=== PATIENT | female | born 2005 | race Caucasian/White ===

== ENCOUNTER 2023-10-25 15:23 | Emergency (ER) | payer BC, MEDICAID, SELFPAY ==
[2023-10-25 15:34] VITALS: BP 145/90; PULSE 112; RESP 18; TEMP 37.7; O2SAT 99
--- NOTE | 2023-10-25 15:34 | ED.URI ---
HPI - URI/Sore Throat General Chief Complaint: Upper Respiratory Infection Stated Complaint: Sore Throat Time Seen by Provider: 10/25/23 15:39 History of Present Illness HPI Narrative: 17-year-old female presented for complaint of sore throat. Onset last night. She endorses feeling 'bad' last night. Denies cough, nasal congestion, n/v/d/f/c. Not taking anything for symptoms. Related Data Home Medications Medication Instructions Recorded Confirmed No Home Medications 10/25/23 10/25/23 Allergies Allergy/AdvReac Type Severity Reaction Status Date / Time No Known Allergies Allergy Unverified 10/25/23 15:28 Review of Systems Review of Systems: CONSTITUTIONAL: Denies body aches, fever, chills, or sweats. EYES: Denies visual changes, redness, or discharge. ENT: reports sore throat Denies rhinorrhea, congestion, or otalgia. CARDIOVASCULAR: Denies chest pain, palpitations, or edema. RESPIRATORY: Denies dyspnea. GASTROINTESTINAL: Denies abdominal pain, nausea, vomiting, or diarrhea. SKIN: Denies rash, itching, or wounds. MUSCULOSKELETAL: Denies back pain, joint pain, or myalgia. NEUROLOGIC: Denies headache Exam Narrative: GENERAL: well-appearing, no acute distress. EYES: conjunctivae clear ENT: Mucous membranes moist. TM pearly turcios with normal light reflex bilaterally; no tragal tenderness. Oropharynx erythematous Tonsils not enlarged and without exudate. No drooling, no hoarseness, no trismus, uvula midline. No tripod positioning, hot potato voice, or soft palate swelling. NECK: Supple. No lymphadenopathy CHEST: Clear to auscultation, breath sounds equal. No respiratory distress, speaks in full sentences. HEART: Regular rate and rhythm. No murmur heard. SKIN: Warm, dry, no rash. NEURO: Alert and oriented x3. Course Course Emergency Course: Patient is aware of diagnosis, understands and agrees to treatment plan. Anticipatory guidance given. Patient agrees to follow-up as directed and is aware of reasons to seek care at the emergency department. Portions of this record may have been created with voice recognition software Level of Care: Express Care Visit MDM - URI/Sore Throat MDM Narrative Medical decision making narrative: Neg strep result reviewed with pt. will culture. Advise supportive treatments. Patient is appropriate for outpatient treatment and follow-up. Differential Diagnosis Differential diagnosis: Likely upper respiratory infection, viral infection and pharyngitis Discharge Plan Discharge Clinical Impression: Pharyngitis Patient Disposition: Home, Self-Care Condition: Stable Instructions: Antibiotic Form, Pharyngitis (ED) Additional Instructions: Rapid strep swab was negative today You will be notified in a few days if the culture comes back positive for strep, and appropriate antibiotics will be called in at that time. if symptoms are due to a viral illness, it is not treated with antibiotics. Viral symptoms can be present for up to 10-14 days. Motrin and Tylenol every 8 hours as needed for pain/fever Soft foods, cool liquids, warm tea. Gargle with warm saltwater twice a day. Chloraseptic spray and throat lozenges. Rest and stay hydrated. --Follow up with your PCP --Go to the ER immediately if you cannot swallow your saliva, trouble breathing/wheezing, throat swelling, pain is persistent and severe Prescriptions: No Action No Home Medications Follow-up/Referrals: PHYSICIAN,CORRECTIONAL CLASSIFICATION COUNSELOR [Primary Care Provider] - Time of Disposition: 15:43
== END 2023-10-25 15:48 | disposition home or self-care (01) ==
PROVIDERS: Emergency Provider Nurse Practitioner Family
DX: J02.9 Acute pharyngitis, unspecified (principal)
CPT/HCPCS: 87081; 87880; 99213; G0463

== ENCOUNTER 2024-05-16 16:33 | Emergency (ER) | payer BC, SELFPAY ==
[2024-05-16 16:38] VITALS: BP 146/95; PULSE 88; RESP 16; TEMP 36.7; O2SAT 100
--- NOTE | 2024-05-16 16:53 | ED_ITS ---
HPI - URI/Sore Throat General Chief Complaint: Upper Respiratory Infection Stated Complaint: Poss sinus infection History of Present Illness HPI Narrative: Patient presents with nasal congestion and cold symptoms for the past 5 days. No fever no body aches has not taking anything [id number] for her symptoms. Related Data Allergies Allergy/AdvReac Type Severity Reaction Status Date / Time No Known Allergies Allergy Unverified 10/25/23 15:28 Review of Systems Review of Systems: CONSTITUTIONAL: Denies chills, or sweats. Reports fever and generalized body aches EYES: Denies visual changes, redness, or discharge. ENT: Denies otalgia. Reports nasal congestion runny nose and sore throat CARDIOVASCULAR: Denies chest pain, palpitations, or edema. RESPIRATORY: Denies dyspnea. Reports occasional cough GASTROINTESTINAL: Denies abdominal pain, nausea, vomiting, or diarrhea. GENITOURINARY: Denies dysuria or hematuria. SKIN: Denies rash or itching. MUSCULOSKELETAL: Denies back pain, joint pain, or myalgia. Reports generalized body aches NEUROLOGIC: Denies headache, numbness, or weakness. PSYCHIATRIC: Denies anxiety or depression. PMF Comments At time of signature, agree with nursing past medical, surgical, social and family history. There is no relevant family history pertinent to the presenting complaint Exam Narrative: The patient is a well-developed, well-nourished in no acute distress. SKIN: Skin is warm and dry without erythema, swelling or exudate. There is good turgor. No tenting. HEAD: Atraumatic. Normocephalic. No temporal or scalp tenderness. EYES: Moist and bright. Sclera and conjunctivae normal. No discharge. PERRLA. Extraocular motions intact. Gross visual acuity intact. EARS: Pinna is normal shape and contour. Clear external auditory canals. TM pearly miller with good cone of light, no erythema or suppuration. Bilateral cerumen noted no gross hearing deficit. NOSE: pink, moist mucosa with good air movement. Clear rhinorrhea without nasal flaring. Septum midline. Mouth: moist mucous membranes. THROAT; mild erythema noted to posterior oropharynx with moderate postnasal drainage. Without exudate or ulceration.. Uvula midline. Normal movement of soft palate. NECK: Supple and nontender with full range of motion without discomfort. No meningeal signs. LUNGS: Equal and bilateral breath sounds without wheezes, rales or rhonchi. CHEST: The chest wall is without retractions or use of accessory muscles. HEART: Has a regular rate and rhythm without murmur, gallops, click or rub. ABDOMEN: Soft, nontender with positive active bowel sounds. No rebound tenderness. EXTREMITIES: Without cyanosis, clubbing or edema. Equal 2+ distal pulses and 2 second capillary refill noted. NEUROLOGIC: alert, active, . The patient moves all extremities with normal muscle strength. Normal muscle tone is noted. Normal coordination is noted. NO focal neurological findings noted. Course Course Level of Care: Express Care Visit Vital Signs Vital signs: Vital Signs Temperature 36.7 C 05/16/24 16:38 Pulse Rate 88 05/16/24 16:38 Respiratory Rate 16 05/16/24 16:38 Blood Pressure 146/95 H 05/16/24 16:38 Pulse Oximetry 100 05/16/24 16:38 Oxygen Delivery Room Air 05/16/24 16:38 Temperature 36.7 C 05/16/24 16:38 Pulse Rate 88 05/16/24 16:38 Respiratory Rate 16 05/16/24 16:38 Blood Pressure 146/95 H 05/16/24 16:38 Pulse Oximetry 100 05/16/24 16:38 Oxygen Delivery Room Air 05/16/24 16:38 Discharge Plan Discharge Clinical Impression: Upper respiratory infection Patient Disposition: Home, Self-Care Condition: Stable Instructions: Cold Symptoms (ED) Additional Instructions: INUSITIS, Abx Tx, Drink plenty of water (with the goal to keep your urine clear to light yellow) and get plenty of rest (8-9 hours a night).You may try saline rinses ([place]/Simply Saline/Neti Pot), Lit's Vaporub, or a humidifier/hot showers for your nose symptoms. You may also try taking an anti-histamine during the day (such as Dorothea/Claritin/Zyrtec) and Benadryl at night as dosed on the package regularly for the next 1-2 weeks to help dry passageways to decrease drainage and symptoms. You may try Delsym or Mucinex DM as dosed on the package, or cough drops for your cough. You may try Chloraseptic spray as dosed on the bottle, honey 2-3 tablespoons 2-3 times a day, cough drops/peppermints for your sore throat over the next week. , Discussed with patient if worsening symptoms or worsening pain follow up with primary care physician -If you have any worsening of symptoms or any other concerns please go to the ED immediately. Patient Language: Chadian Prescriptions: New methylprednisolone [Medrol (Sohail)] 4 mg tablets,dose pack See Rx Instructions .ROUTE .COMPLEX 6 Days Qty: 21 0RF Rx Instructions: orally per package directions fluticasone propionate 50 mcg/actuation spray,suspension 2 spray NASAL DAILY 14 Days Qty: 9.9 0RF Rx Instructions: administer into each nostril Zyrtec 10 mg capsule 10 mg PO DAILY 14 Days Qty: 14 0RF Follow-up/Referrals: PHYSICIAN,ATMOSPHERIC PHYSICIST [Primary Care Provider] -
--- OUTSIDE RECORDS SUMMARY | 2024-05-20 23:51 | XMS_ITS | Clinical Summary ---
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 Last Documented On 2 11:02AM ; [facility]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 Plan of Treatment No Plan of Treatment Recorded Assessments Includes: Assessments from this encounter Findings - Vaginitis - Last Documented On 05/20/2022 9:54AM ; [facility] Medical Equipment - Implanted Devices Includes: Current Devices No Medical Equipment Recorded Medications Includes: Medications discussed during this encounter and other current Medications New / Renewed during this visit SONJA VEGA on 05/20/2022 metroNIDAZOLE 0.75% Vaginal Gel Provider: SONJA VEGA 5 day supply: 70 gram, 0 refills Diagnosis: Acute vaginitis as directed 1 LIDA PER VAGINA DAILY X 5 Pharmacy : [facility] - [address] [place] [address], [id number] - Last Documented On 2 10:07AM [facility] ; [facility] Past Medications on file Condoms Miscellaneous 06/20/2022 - 07/02/2022 Provider: SONJA LOTT RN [facility] Diagnosis: Encounter for ot h general cnsl and advice on contraception as directed Last Documented On 3 4:25PM By [facility] Ventolin HFA 108 (90 Base)MCG/ACT Inhalation Aerosol, solution 09/22/2018 - 10/22/2018 Provider: JAYME LOZOYA PA-C Diagnosis: Shortness of manuel ath 2 puffs q 4-6 hrs PRN Last Documented On 9 4:04PM By JAYME LOZOYA PA-C ; [facility] Penicillin V Potassium 250 MG/5ML Solution, when reconstituted 08/18/2014 - 08/28/2014 Provider: ZAFAR QUEZADA [facility] Diagnosis: ACUTE PHARYNGITI S as directed 5ml BID x 10 days Last Documented On 5 3:26PM By ZAFAR QUEZADA [facility] ; [facility] Amoxicillin 250 MG OR CAPS 09/04/2013 - 09/14/2013 Provider: JAYME LOZOYA PA-C Diagnosis: STREP SORE THROA T Take 3 capsules once daily x 10 days Last Documented On 4 2:19PM By JAYME LOZOYA PA-C ; [facility] Amoxicillin 250 MG OR CAPS 02/09/2013 - 02/19/2013 Provider: KATYA DOOLEY MD Diagnosis: ACUTE PHARYNGITI S 3 ONCE A DAY X 10 DAYS Last Documented On 02/09/2013 3:52PM By Elicia CORTEZ ; [facility] Ciprodex 0.3-0.1% OT SUSP 01/03/2012 - 01/10/2012 Provider: JAYME LOZOYA PA-C Diagnosis: INFEC OTITIS EXT USMAN NOS 4 gtts in affected ear twice daily x 7 days Last Documented On 2 1:32PM By JAYME LOZOYA PA-C ; [facility] Singulair 5 MG OR CHEW 10/17/2011 - 11/16/2011 Provide r: JAYME LOZOYA PA-C Diagnosis: UPPER RESP DIS NEC/NOS Chew one tab daily in PM. Last Documented On 2 2:58PM By JAYME LOZYOA PA-C ; [facility] Silver sulfADIAZINE 1% EX CREA 09/24/2011 - 10/02/2011 Provider: KATYA DOOLEY MD Diagnosis: OPEN WOUND SITE NOS Last Documented On 2 11:42PM By KATYA DOOLEY MD ; [facility] Medications Administered Includes: Administered Medications from this encounter No Administered Medications Recorded Results Includes: Results discussed during this encounter No Results Recorded For Specified Dates History of Present Illness Includes: History of Present Illness from this encounter No History of Present Illness Recorded Social History No Social History Recorded - Smoking Status Unknown Procedures and Surgical History Surgical History Last Updated Surgical / procedural history RT LABIAL HERNIA [id number] 09/24/2011 Last Documented On 2 9:53AM ; [facility] Medical History Includes: Medical History addressed during this encounter Description Last Updated LMP: 05/08/2022 06/20/2022 Last Documented On 2 9:53AM ; [facility] Primary Care Provider: NONE 05/17/2022 Last Documented On 2 9:53AM ; [facility] 0 05/17/2022 Last Documented On 2 9:53AM ; [facility] Condoms 05/17/2022 Last Documented On 2 9:53AM ; [facility] No previous STD 05/17/2022 Last Documented On 2 9:53AM ; [facility] Please list all surgeries: Labial Hernia 2004 05/17/2022 Last Documented On 2 9:53AM ; [facility] Not taking medication 09/24/2017 Last Documented On 2 9:53AM ; [facility] A PPD was not performed 10/15/2014 Last Documented On 2 9:53AM ; [facility] Blood pressure was not high 10/15/2014 Last Documented On 2 9:53AM ; [facility] No cardiac problems 10/15/2014 Last Documented On 2 9:53AM ; [facility] No hearing problems 10/15/2014 Last Documented On 2 9:53AM ; [facility] No heart murmur 10/15/2014 Last Documented On 2 9:53AM ; [facility] No previous hospitalizations 10/15/2014 Last Documented On 2 9:53AM ; [facility] No trauma to the head 10/15/2014 Last Documented On 2 9:53AM ; [facility] Family History Includes: Family History addressed during this encounter Description Last Updated Mother-hyperhomocysteinemia 05/17/2022 Last Documented On 2 9:53AM ; [facility] No diagnosis of family history of malign ant female breast neoplasm 05/17/2022 Last Documented On 2 9:53AM ; [facility] No diagnosis of family history of malign ant neoplasm of large intestine 05/17/2022 Last Documented On 2 9:53AM ; [facility] No diagnosis of family history of malign ant neoplasm of ovary 05/17/2022 Last Documented On 2 9:53AM ; [facility] Family history of Anemia 05/17/2022 Last Documented On 2 9:53AM ; [facility] Maternal history of Anemia 05/17/2022 Last Documented On 2 9:53AM ; [facility] Maternal history of gallbladder disease 05/17/2022 Last Documented On 2 9:53AM ; [facility] Paternal history of gallbladder disease 05/17/2022 Last Documented On 2 9:53AM ; [facility] Family history of acute myocardial infar ction MAT GF IN 40s (Smoker) 09/22/2018 Last Documented On 2 9:53AM ; [facility] Family history of anxiety disorder NOS M OTHER AND FATHER 09/22/2018 Last Documented On 2 9:53AM ; [facility] Family history of hypertension FATHER Last Documented On 2 9:53AM ; [facility] No family history of diabetes mellitus 0 10/15/2014 Last Documented On 2 9:53AM ; [facility] No family history of sudden early deaths 10/15/2014 Last Documented On 2 9:53AM ; [facility] Family history unchanged 08/18/2014 Last Documented On 2 9:53AM ; [facility] Review of Systems Includes: Review of Systems from this encounter No Review of Systems Recorded Mental Status Includes: Mental Status from this encounter No Mental Status Recorded Functional Status Includes: Functional Status from this encounter No Functional Status Recorded Physical Exam Includes: Physical Exam from this encounter No Physical Exam Recorded Allergies Includes: Active Allergies No Known Allergies Encounters Encounter Provider Location Date Check-In Time Check-Out Time Diagnosis CHART UPDATE SONJA LOTT RN [facility] 05/20/2022 9:52AM 11:59PM Vaginitis Insurance Includes: Active Insurance Policies Plan Name Member ID Group # Subscriber Relationship Effect angei Dates 1 - MEDICAID [place] [facility] [id number] TERE MEJIA Self Clinical Notes Includes: Clinical Notes from this encounter No Clinical Notes Recorded
--- OUTSIDE RECORDS SUMMARY | 2024-05-20 23:51 | XMS_ITS | Clinical Summary ---
Author Organization 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 SONJA LOTT RN [place]RISTIN Active Last Documented On 2 11:02AM ; [facility]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 Plan of Treatment Total time spent on education and counseling = 35 minutes including contraceptive options and thrombo embolitic counseling - Last Documented On 06/20/2022 4:20PM ; [facility] Pending Tests Order Diagnosis Results Due Ordering P rovider Lab 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 Assessments Includes: Assessments from this encounter Findings - [Z30.09 - Encounter for other general counseling and advice on contraception] Contraceptive management - Last Documented On 06/20/2022 4:20PM ; [facility] - [E72.11 - Homocystinuria] Homocystinuria - Last Documented On 06/20/2022 4:20PM ; [facility] - [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 - Last Documented On 06/20/2022 4:20PM ; [facility] Medical Equipment - Implanted Devices Includes: Current Devices No Medical Equipment Recorded Medications Includes: Medications discussed during this encounter and other current Medications New / Renewed during this visit SONJA LOTT RN CHRISTIN on 06/20/2022 Condoms Miscellaneous Provider: SONJA WARD 12 day supply: 12 each, 0 refills Diagnosis: Encounter for ot general cnsl and advice on contraception as directed Pharmacy: [address], [address] - Last Documented On 3 4:25PM By SONJA ALVA ; [facility] Past Medications on file metroNIDAZOLE 0.75% Vaginal Gel 05/20/2022 - 05/25/2022 Provider: SONJA WARD Diagnosis: Acute vaginitis as directed 1 LIDA PER VAGINA DAILY X 5 Last Documented On 2 10:07AM By SONJA ALVA ; [facility] Ventolin HFA 108 (90 Base)MCG/ACT Inhalation Aerosol, solution 09/22/2018 - 10/22/2018 Provider: JAYME LOZOYA PA-C Diagnosis: Shortness of manuel ath 2 puffs q 4-6 hrs PRN Last Documented On 9 4:04PM By JAYME LOZOYA PA-C ; [facility] Penicillin V Potassium 250 MG/5ML Solution, when reconstituted 08/18/2014 - 08/28/2014 Provider: ZAFAR QUEZADA PMHNPAmmonBC CUSTOMER ASSISTANCE ASSOCIATE-BC Diagnosis: ACUTE PHARYNGITI S as directed 5ml BID x 10 days Last Documented On 5 3:26PM By ZAFAR QUEZADA CUSTOMER ASSISTANCE ASSOCIATE- ; [facility] Amoxicillin 250 MG OR CAPS 09/04/2013 - 09/14/2013 Provider: JAYME LOZOYA PA-C Diagnosis: STREP SORE THROA T Take 3 capsules once daily x 10 days Last Documented On 4 2:19PM By JAYME LOZOYA PA-C ; [facility] Amoxicillin 250 MG OR CAPS 02/09/2013 - 02/19/2013 Provider: KATYA DOOLEY MD Diagnosis: ACUTE PHARYNGITI S 3 ONCE A DAY X 10 DAYS Last Documented On 02/09/2013 3:52PM By Elicia CORTEZ ; [facility] Ciprodex 0.3-0.1% OT SUSP 01/03/2012 - 01/10/2012 Provider: JAYME LOZOYA PA-C Diagnosis: INFEC OTITIS EXT USMAN NOS 4 gtts in affected ear twice daily x 7 days Last Documented On 2 1:32PM By JAYME LOZOYA PA-C ; [facility] Singulair 5 MG OR CHEW 10/17/2011 - 11/16/2011 Provide r: JAYME LOZOYA PA-C Diagnosis: UPPER RESP DIS NEC/NOS Chew one tab daily in PM. Last Documented On 2 2:58PM By JAYME LOZOYA PA-C ; [facility] Silver sulfADIAZINE 1% EX CREA 09/24/2011 - 10/02/2011 Provider: KATYA DOOLEY MD Diagnosis: OPEN WOUND SITE NOS Last Documented On 2 11:42PM By KATYA DOOLEY MD ; [facility] Medications Administered Includes: Administered Medications from this encounter No Administered Medications Recorded Vital Signs Includes: Vital Signs from this encounter Vital Name 06/20/2022 03:12P Blood Pressure Sitting L 128/78 BP Cuff Size Regular Temp-Temporal 98.7 Height (in) 68.5 Weight (lb) 137 Body Mass Index 20.5 BMI Percentile (percentile) 37.4 Body Surface Area 1.7 Last Documented: On 06/20/2022 3:16PM ; [facility] Results Includes: Results discussed during this encounter HOMOCYSTEINE [facility] Ordered by SONJA LOTT RN [facility] on 05/17/2022 [address], [place], [address] Collected: 05/17/2022 Report ed: 05/21/2022 12:28 tel:[phone] Last Documented On 2 11:08AM ; [facility] Reviewed by SONJA LOTT RN [facility] on 05/25/2022; All test results are final unless otherwise noted. HOMOCYSTEINE 16.1 umol/L (<10.4) H (High) Last Documented On 05/25/2022 7:22AM ; [facility] Note: Homocysteine is increased by functional deficiency offolate or vitamin B12. Testing for methylmalonic aciddifferentiates between these deficiencies. Other causesof increased homocysteine include renal failure, folateantagonists such as methotrexate and phenytoin, andexposure to nitrous oxide.Kaylee Meneses et al., Marcelle Capacity Analyst Med. 1999;131(5):331-9.THIS TEST WAS PERFORMED AT:[facility] [id number] [place] [address]XMCVLHV BECKER,DO,MPHResponsible Observer: (rfl) MTHFR [facility] [place] [facility] Ordered by SONJA LOTT RN [facility] on 05/17/2022 [address], [place], [address] Collected: 05/17/2022 Report ed: 05/25/2022 06:58 tel:[phone] Last Documented On 2 11:08AM ; [facility] Reviewed by SONJA LOTT RN [facility] on 05/25/2022; All test results are final unless otherwise noted. 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 Thisresult is not associated with a significantly increased riskfor coronary artery disease, venous thromboembolism, oradverse outcome. This assay cannot determinewhether these two variants are on opposite chromosomes(trans) or on the same chromosome (cis).Laboratory results reviewed and released by qualifiedpersonnel.Reduced methylenetetrahydrofolate reductase (MTHFR) enzymeactivity is a genetic risk factor for hyperhomocysteinemia,especially when present with low serum folate levels. Twocommon variants in the MTHFR gene result in reduced enzymeactivity. The thermolabile variant C677T [NM 362657.3:c.665C>T (p.A222V)] and V3514N [c. 1286A>C (p.E429A)] occurfrequently in the general population.Mild to moderate hyperhomocysteinemia has been identified asa risk factor for coronary artery disease and venousthromboembolism. Hyperhomocysteinemia is multifactorial,involving a combination of genetic, physiologic andenvironmental factors. Recent studies do not support thepreviously described association of increased risk forcoronary artery disease and venous thromboembolism with mildhyperhomocysteinemia caused by reduced MTHFR activity.Therefore, the utility of MTHFR variant testing is uncertainand is not recommended by The [place] [employer] (ACMG) or the [place] Congress ofObstetricians and Gynecologists (ACOG) in the evaluation ofvenous thromboembolism or adverse outcome.Modest positive association has also been found between the thermolabile variant of the MTHFR gene and many othermedical complications, such as recurrent loss,risk of offspring with neural tube defects, neuropsychiatricdisease, and chemotherapy toxicity. Increased risk ofcoronary artery disease, venous thromboembolism andincreased plasma homocysteine can be caused by a variety ofgenetic and non-genetic factors not screened for by thisassay. If indicated by personal or family history ofthromboembolism, consider additional testing such as plasmahomocysteine levels, factor V Leiden and prothrombin genemutations.The C677T and N6210G variants are detected by amplificationof the selected regions of the MTHFR gene by polymerasechain reaction (PCR) and fluorescent probes hybridization tothe targeted regions, followed by melting curve analysiswith a real time PCR system. Although rare, false positiveor false negative results may occur. All results should beinterpreted in context of clinical findings, relevanthistory, and other laboratory data. Health care providers,please contact your local [facility]'s geneticcounselor or call [facility] ([phone]) for assistancewith interpretation of these results.For additional information, please refer tohttp://education.[employer]/faq/FAQ 66 (This linkis being provided for informational/educational purposesonly.)This test was developed and its analytical performancecharacteristics have been determined by [facility]. It has not beencleared or approved by the U.S. Food and DrugAdministration. 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 Pt would like to discuss contraceptive options to minimize thrombus risks. Current use of condoms 100% Social History No Social History Recorded - Smoking Status Unknown Procedures and Surgical History Surgical History Last Updated Surgical / procedural history RT LABIAL HERNIA [id number] 09/24/2011 Last Documented On 3 3:12PM ; [facility] Medical History Includes: Medical History addressed during this encounter Description Last Updated LMP: 06/02/2022 06/20/2022 Last Documented On 3 4:20PM ; [facility] Primary Care Provider: NONE 05/17/2022 Last Documented On 3 3:12PM ; [facility] 0 05/17/2022 Last Documented On 3 3:12PM ; [facility] Condoms 05/17/2022 Last Documented On 3 3:12PM ; [facility] No previous STD 05/17/2022 Last Documented On 3 3:12PM ; [facility] Please list all surgeries: Labial Hernia 2004 05/17/2022 Last Documented On 3 3:12PM ; [facility] Not taking medication 09/24/2017 Last Documented On 3 3:12PM ; [facility] A PPD was not performed 10/15/2014 Last Documented On 3 3:12PM ; [facility] Blood pressure was not high 10/15/2014 Last Documented On 3 3:12PM ; [facility] No cardiac problems 10/15/2014 Last Documented On 3 3:12PM ; [facility] No hearing problems 10/15/2014 Last Documented On 3 3:12PM ; [facility] No heart murmur 10/15/2014 Last Documented On 3 3:12PM ; [facility] No previous hospitalizations 10/15/2014 Last Documented On 3 3:12PM ; [facility] No trauma to the head 10/15/2014 Last Documented On 3 3:12PM ; [facility] Family History Includes: Family History addressed during this encounter Description Last Updated Mother-hyperhomocysteinemia 05/17/2022 Last Documented On 3 3:12PM ; [facility] No diagnosis of family history of malign ant female breast neoplasm 05/17/2022 Last Documented On 3 3:12PM ; [facility] No diagnosis of family history of malign ant neoplasm of large intestine 05/17/2022 Last Documented On 3 3:12PM ; [facility] No diagnosis of family history of malign ant neoplasm of ovary 05/17/2022 Last Documented On 3 3:12PM ; [facility] Family history of Anemia 05/17/2022 Last Documented On 3 3:12PM ; [facility] Maternal history of Anemia 05/17/2022 Last Documented On 3 3:12PM ; [facility] Maternal history of gallbladder disease 05/17/2022 Last Documented On 3 3:12PM ; [facility] Paternal history of gallbladder disease 05/17/2022 Last Documented On 3 3:12PM ; [facility] Family history of acute myocardial infar ction MAT GF IN 40s (Smoker) 09/22/2018 Last Documented On 3 3:12PM ; [facility] Family history of anxiety disorder NOS M OTHER AND FATHER 09/22/2018 Last Documented On 3 3:12PM ; [facility] Family history of hypertension FATHER Last Documented On 3 3:12PM ; [facility] No family history of diabetes mellitus 0 10/15/2014 Last Documented On 3 3:12PM ; [facility] No family history of sudden early deaths 10/15/2014 Last Documented On 3 3:12PM ; [facility] Family history unchanged 08/18/2014 Last Documented On 3 3:12PM ; [facility] Review of Systems Includes: Review of Systems from this encounter No Review of Systems Recorded Mental Status Includes: Mental Status from this encounter No Mental Status Recorded Functional Status Includes: Functional Status from this encounter No Functional Status Recorded Physical Exam Includes: Physical Exam from this encounter Allergies Includes: Active Allergies No Known Allergies Encounters Encounter Provider Location Date Check-In Time Check-Out Time Diagnosis CONSULTATION- ESTABLISHED PATIENT SONJA LOTT RN NP [facility] 06/20/19 23 2:58PM 3:59PM Homocystinuri a,Methylenete trahydrofolat e Reductase Deficiency,Co ntraceptive Management Insurance Includes: Active Insurance Policies Plan Name Member ID Group # Subscriber Relationship Effect angie Dates 1 - MEDICAID [place] [facility] [id number] TERE MEJIA Self Clinical Notes Includes: Clinical Notes from this encounter No Clinical Notes Recorded
--- OUTSIDE RECORDS SUMMARY | 2024-05-20 23:51 | XMS_ITS ---
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 Plan discussed and patient/parent/caregiver states understanding PROBLEM VISIT with JAYME LOZOYA PA-C 09/22/2018 Last Documented On 9 4:12PM ; [facility] Ordered follow-up visit in 1 month with an office visit. Get fasting labs anytime Use inhaler prior to activity and as needed and see if there is any change. Discussed possible anxiety meds (Effexor since mother is on it). Call sooner if needed PROBLEM VISIT with JAYME LOZOYA PA-C 09/22/2018 Last Documented On 9 4:12PM ; [facility] Ordered patient will call fo r appointment as needed [facility]ORTS PHYSICAL [facility] GEOLOGICAL ENGINEERING TEACHER- 09/24/2017 Last Documented On 8 4:46PM ; [facility] Ordered return to the clinic if condition worsens or new symptoms arise [facility] PHYSICAL [facility] 09/24/2017 Last Documented On 8 4:46PM ; [facility] Ordered Clinical summary pro vided to patient . Plan discussed and patient/parent/caregiver states understanding SICK VISIT with JAYME LOZOYA PA-C 05/30/2016 Last Documented On 6 5:07PM ; [facility] Ordered follow-up visit as n eeded with an office visit. Continue to alternate tylenol and motrin every 3 hrs for fever/pain. Push fluids, lots of rest. Dayquil/nyquil as needed. Call sooner if symptoms worsen/persist beyond 7 days SICK VISIT with JAYME LOZOYA PA-C 05/30/2016 Last Documented On 6 5:07PM ; [facility] Ordered patient will call fo r appointment as needed SAME DAY S[facility] 08/18/2015 Last Documented On 6 11:14AM ; [facility] Ordered return to the clinic if condition worsens or new symptoms arise SAME DAY SICK VISIT with ZAFAR QUEZADA HNP-BC [facility]- 08/18/2015 Last Documented On 6 11:14AM ; [facility] Ordered patient will call fo r appointment as needed SICK VISIT with ZAFAR QUEZADA HNP-BC GEOLOGICAL ENGINEERING TEACHER- 08/18/2014 Last Documented On 5 3:30PM ; [facility] Ordered return to the clinic if condition worsens or new symptoms arise SICK VISIT with ZAFAR QUEZADA HNP-BC GEOLOGICAL ENGINEERING TEACHER-BC 08/18/2014 Last Documented On 5 3:30PM ; [facility] Ordered Clinical summary pro vided to patient . Plan discussed and patient/parent/caregiver states understanding PROBLEM VISIT with JAYME LOZOYA PA-C 02/16/2014 Last Documented On 4 4:22PM ; [facility] Ordered follow-up visit as n eeded with an office visit. Discussed normal puberty--first signs of puberty is breast buds PROBLEM VISIT with JAYME LOZOYA PA-C 02/16/2014 Last Documented On 4 4:22PM ; [facility] Ordered Clinical summary pro vided to patient . Plan discussed and patient/parent/caregiver states understanding SICK VISIT with JAYME LOZOYA PA-C 09/04/2013 Last Documented On 4 2:23PM ; [facility] Ordered follow-up visit as n eeded with an office visit. Call if symptoms worsen/persist beyond 3-5 days SICK VISIT with JAYME LOZOYA PA-C 09/04/2013 Last Documented On 4 2:23PM ; [facility] Ordered Clinical summary pro vided to patient . Plan discussed and patient understands SICK VISIT with JAYME LOZOYA PA-C 06/02/2013 Last Documented On 3 2:25PM ; [facility] Ordered follow-up visit as n eeded with an office visit. Fluids, rest. Hot steamy showers, vicks. Zyrtec for nose. Call if symptoms worsen/persist Handout on colds and the flu from [email or web address] given SICK VISIT with JAYME LOZOYA PA-C 06/02/2013 Last Documented On 3 2:25PM ; [facility] Ordered follow-up visit as n eeded with an office visit. Daily zyrtec/claritin for secretions. Call if sxs worsen/persist SICK VISIT with JAYME LOZOYA PA-C 01/03/2012 Last Documented On 2 1:44PM ; [facility] Ordered follow-up visit as n eeded with an office visit. Salt water gargles, losenges/popsicles/etc for sore throat. Daily Claritin/zyrtec for secretions. Trial of singulair x 2 wks or possibly for 4 wks. Call if sxs worsen/persist SICK VISIT with JAYME LOZOYA PA-C 10/17/2011 Last Documented On 2 3:02PM ; [facility] Ordered analgesics (non-ster oidal anti-inflammatory agents) NEW PATIENT VISIT with KATYA DOOLEY MD 09/24/2011 Last Documented On 2 11:46PM ; [facility] Ordered patient to call if galo daniels develops NEW PATIENT VISIT with KATYA DOOLEY MD 09/24/2011 Last Documented On 2 11:46PM ; [facility] Referrals To Diagnosis Oncology/Hematology [facility] - [address] [place] [address] - Other thrombophilia Note: hyperhomocystinuria an d MTHFR heterozygous, prothrombin gene mutation pending, consult and clearnace for progestin only contraceptives Last Documented On 4 11:04AM ; [facility] Instructions to patient Instructions for patient : B reast Self Exam discussed and technique reviewed Last Documented On 2 1:57PM ; [facility] Instructed to call if excess angie bleeding or abdominal/pelvic pain Last Documented On 2 1:57PM ; [facility] Recommend diet and exercise at least 30 min three times per week Last Documented On 2 1:57PM ; [facility] Instructions for patient Last Documented On 8 4:15PM ; [facility] Instructions for patient Last Documented On 6 10:44AM ; [facility] No Special Instructions or D evices Last Documented On 5 4:36PM ; [facility] Instructions for patient Last Documented On 5 3:16PM ; [facility] Watch for signs/symptoms of infection Last Documented On 2 11:40PM ; [facility] Education and Decision Aids were provided during visit for: Patient education RE: ramo soria signals associated with hormonal contraceptive use including abdominal, chest, or leg pain, headaches or visual disturbances Last Documented On 2 1:57PM ; [facility] Patient Education: Daily david cium and vitamin D Last Documented On 2 1:57PM ; [facility] control consent review ed and signed Last Documented On 2 1:57PM ; [facility] Anticipatory guidance: limit computer and video time Last Documented On 8 4:45PM ; [facility] Discussed use of seat belts Last Documented On 8 4:45PM ; [facility] Discussed use of smoke detec tors Last Documented On 8 4:45PM ; [facility] Discussed 'child-proofing' t he house advised to remove guns from home or keep unloaded and locked away Last Documented On 8 4:45PM ; [facility] Discussed avoiding sun expos ure Last Documented On 8 4:45PM ; [facility] Discussed bicycle safety Last Documented On 8 4:45PM ; [facility] Discussed sports safety Last Documented On 8 4:45PM ; [facility] Discussed nutritional needs teach healthy choices including fruits and vegetables Last Documented On 8 4:45PM ; [facility] Discussed activities supervi se activities with peers Last Documented On 8 4:45PM ; [facility] Discussed concerns about exe rcise : promote physical activity Last Documented On 8 4:45PM ; [facility] Discussed concerns about dis cipline reinforce limits, family rules, homework and chores Last Documented On 8 4:45PM ; [facility] Discussed concerns about set ting disciplinary limits and establish consequences Last Documented On 8 4:45PM ; [facility] Discussed concerns about tel evision : limit time spent watching Last Documented On 8 4:45PM ; [facility] Discussed concerns about sex ual activity Last Documented On 8 4:45PM ; [facility] Discussed concerns about uns afe sexual practices Last Documented On 8 4:45PM ; [facility] Discussed concerns about tob acco use anger control counselor to avoid~ Last Documented On 8 4:45PM ; [facility] Discussed concerns about alc ohol use anger control counselor to avoid Last Documented On 8 4:45PM ; [facility] Discussed concerns about ill icit drug use anger control counselor to avoid Last Documented On 8 4:45PM ; [facility] Discussed concerns Recommend ed Gardasil series--mother wanted to wait Last Documented On 5 4:36PM ; [facility] Assessments Includes: Assessments for all patient encounters Findings Encounter Date Contraceptive management CONSULTATION - ESTABLISHED PATIENT with SONJA LOTT RN [facility] 06/20/2022 Last Documented On 3 4:20PM ; [facility] Homocystinuria CONSULTATION- EST ABLISHED PATIENT with SONJA LOTT RN [facility] 06/20/2022 Last Documented On 3 4:20PM ; [facility] Methylenetetrahydrofolate re ductase deficiency CONSULTATION- ESTABLISHED PATIENT with SONJA LOTT RN [facility] 06/20/2022 Last Documented On 3 4:20PM ; [facility] Vaginitis CHART UPDATE with SONJA LOTT RN [facility] 05/20/2022 Last Documented On 2 9:54AM ; [facility] Family history of disorders of blood and blood-forming organs WELL WOMAN - NEW PATIENT with SONJA LOTT RN [facility] 05/17/2022 Last Documented On 2 2:48PM ; [facility] NORMAL FEMALE EXAM WELL WOMAN - NEW PATIENT with SONJA LOTT RN [facility] 05/17/2022 Last Documented On 2 2:48PM ; [facility] Anxiety disorder NOS ? PROBLEM VISIT with JAYME LOZOYA PA-C 09/22/2018 Last Documented On 9 4:12PM ; [facility] Routine history and physical PROBLEM VISIT with JAYME LOZOYA PA-C 09/22/2018 Last Documented On 9 4:12PM ; [facility] Shortness of breath PROBLEM VISIT with JAYME LOZOYA PA-C 09/22/2018 Last Documented On 9 4:12PM ; [facility] Patient is approved for part icipation in School, Physical Education, and Sports for 1 year SPORTS PHYSICAL with ZAFAR QUEZADA [facility] 09/24/2017 Last Documented On 8 4:46PM ; [facility] Routine adolescent history a nd physical (12 - 15 yrs) SPORTS PHYSICAL with ZAFAR QUEZADA [facility] 09/24/2017 Last Documented On 8 4:46PM ; [facility] SCHOOL/SPORT PHYSICAL SPORTS PHYSICAL wi th ZAFAR QUEZADA [facility] 09/24/2017 Last Documented On 8 4:46PM ; [facility] Influenza type B SICK VISIT with JAYME HAMMOND-C 05/30/2016 Last Documented On 6 5:07PM ; [facility] Common cold SAME DAY SICK VISIT with CISCO QUEZADA [facility] 08/18/2015 Last Documented On 6 11:14AM ; [facility] Patient is approved for part icipation in School, Physical Education, and Sports for 1 year SPORTS PHYSICAL with JYAME HAMMOND-C 10/15/2014 Last Documented On 5 4:56PM ; [facility] Normal routine history and p hysical well-child (6 - 12) SPORTS PHYSICAL with JAYME HAMMOND-C 10/15/2014 Last Documented On 5 4:56PM ; [facility] Prophylactic Immunotherapy given SPORTS PHYSICAL with JAYME HAMMOND-C 10/15/2014 Last Documented On 5 4:56PM ; [facility] Acute pharyngitis SICK VISIT with ZAFAR CUBA [facility] 08/18/2014 Last Documented On 5 3:30PM ; [facility] Acute upper respiratory infection SICK V ISIT with ZAFAR QUEZADA [facility] 08/18/2014 Last Documented On 5 3:30PM ; [facility] Normal puberty breast bud PROBLEM VISIT with GEORGI HAMMOND-C 02/16/2014 Last Documented On 4 4:22PM ; [facility] A streptococcus: B hem olytic pharyngitis SICK VISIT with JAYME HAMMOND-C 09/04/2013 Last Documented On 4 2:23PM ; [facility] Acute pharyngitis SICK VISIT with JAYME HAMMOND-C 06/02/2013 Last Documented On 3 2:25PM ; [facility] Viral infection SICK VISIT with JAYME LOZOYA PA-C 06/02/2013 Last Documented On 3 2:25PM ; [facility] Acute pharyngitis SICK VISIT with KATYA ROBB MD 02/09/2013 Last Documented On 3 4:04PM ; [facility] Cerumen impaction PROBLEM VISIT with KATYA CUENCA MD 12/22/2012 Last Documented On 3 10:12PM ; [facility] Glossodynia PROBLEM VISIT with KATYA ALLEN MD 12/22/2012 Last Documented On 3 10:12PM ; [facility] WORRIED WELL PROBLEM VISIT with KATYA ALLEN MD 12/22/2012 Last Documented On 3 10:12PM ; [facility] Otitis externa SICK VISIT with JAYME LOZOAY PA-C 01/03/2012 Last Documented On 2 1:44PM ; [facility] Sore throat SICK VISIT with JAYME LOZOYA PA-C 10/17/2011 Last Documented On 2 3:02PM ; [facility] Upper respiratory tract diso rders (viral) vs allergic rhinitis SICK VISIT with JAYME LOZOYA PA-C 10/17/2011 Last Documented On 2 3:02PM ; [facility] Open wound NEW PATIENT VISIT with KATYA LIVINGSTON MD 09/24/2011 Last Documented On 2 11:46PM ; [facility] Instructions Includes: Instructions for all patient encounters Instructions to patient Instructions for patient : B reast Self Exam discussed and technique reviewed Last Documented On 2 1:57PM ; [facility] Instructed to call if excess angie bleeding or abdominal/pelvic pain Last Documented On 2 1:57PM ; [facility] Recommend diet and exercise at least 30 min three times per week Last Documented On 2 1:57PM ; [facility] Instructions for patient Last Documented On 8 4:15PM ; [facility] Instructions for patient Last Documented On 6 10:44AM ; [facility] No Special Instructions or D evices Last Documented On 5 4:36PM ; [facility] Instructions for patient Last Documented On 5 3:16PM ; [facility] Watch for signs/symptoms of infection Last Documented On 2 11:40PM ; [facility] Education and Decision Aids were provided during visit for: Patient education RE: ramo soria signals associated with hormonal contraceptive use including abdominal, chest, or leg pain, headaches or visual disturbances Last Documented On 2 1:57PM ; [facility] Patient Education: Daily david cium and vitamin D Last Documented On 2 1:57PM ; [facility] control consent review ed and signed Last Documented On 2 1:57PM ; [facility] Anticipatory guidance: limit computer and video time Last Documented On 8 4:45PM ; [facility] Discussed use of seat belts Last Documented On 8 4:45PM ; [facility] Discussed use of smoke detec tors Last Documented On 8 4:45PM ; [facility] Discussed 'child-proofing' t he house advised to remove guns from home or keep unloaded and locked away Last Documented On 8 4:45PM ; [facility] Discussed avoiding sun expos ure Last Documented On 8 4:45PM ; [facility] Discussed bicycle safety Last Documented On 8 4:45PM ; [facility] Discussed sports safety Last Documented On 8 4:45PM ; [facility] Discussed nutritional needs teach healthy choices including fruits and vegetables Last Documented On 8 4:45PM ; [facility] Discussed activities supervi se activities with peers Last Documented On 8 4:45PM ; [facility] Discussed concerns about exe rcise : promote physical activity Last Documented On 8 4:45PM ; [facility] Discussed concerns about dis cipline reinforce limits, family rules, homework and chores Last Documented On 8 4:45PM ; [facility] Discussed concerns about set ting disciplinary limits and establish consequences Last Documented On 8 4:45PM ; [facility] Discussed concerns about tel evision : limit time spent watching Last Documented On 8 4:45PM ; [facility] Discussed concerns about sex ual activity Last Documented On 8 4:45PM ; [facility] Discussed concerns about uns afe sexual practices Last Documented On 8 4:45PM ; [facility] Discussed concerns about tob acco use anger control counselor to avoid~ Last Documented On 8 4:45PM ; [facility] Discussed concerns about alc ohol use anger control counselor to avoid Last Documented On 8 4:45PM ; [facility] Discussed concerns about ill icit drug use anger control counselor to avoid Last Documented On 8 4:45PM ; [facility] Discussed concerns Recommend ed Gardasil series--mother wanted to wait Last Documented On 5 4:36PM ; [facility] Medical Equipment - Implanted Devices Includes: Current and historical Devices No Medical Equipment Recorded Medications Includes: Current and historical Medications Past Medications on file Condoms Miscellaneous 06/20/2022 - 07/02/2022 Provider: SONJA LOTT RN [facility] Diagnosis: Encounter for ot h general cnsl and advice on contraception as directed Last Documented On 3 4:25PM By SONJA ALVA ; [facility] metroNIDAZOLE 0.75% Vaginal Gel 05/20/2022 - 05/25/2022 Provider: SONJA WARD BC Diagnosis: Acute vaginitis as directed 1 LIDA PER VAGINA DAILY X 5 Last Documented On 2 10:07AM By SONJA ALVA ; [facility] Ventolin HFA 108 (90 Base)MCG/ACT Inhalation Aerosol, solution 09/22/2018 - 10/22/2018 Provider: JAYME LOZOYA PA-C Diagnosis: Shortness of manuel ath 2 puffs q 4-6 hrs PRN Last Documented On 9 4:04PM By JAYME LOZOYA PA-C ; [facility] Penicillin V Potassium 250 MG/5ML Solution, when reconstituted 08/18/2014 - 08/28/2014 Provider: ZAFAR QUEZADA [facility]-BC GEOLOGICAL ENGINEERING TEACHER-BC Diagnosis: ACUTE PHARYNGITI S as directed 5ml BID x 10 days Last Documented On 5 3:26PM [facility] ; [facility] Amoxicillin 250 MG OR CAPS 09/04/2013 - 09/14/2013 Provider: JAYME LOZOYA PA-C Diagnosis: STREP SORE THROA T Take 3 capsules once daily x 10 days Last Documented On 4 2:19PM By JAYME LOZOYA PA-C ; [facility] Amoxicillin 250 MG OR CAPS 02/09/2013 - 02/19/2013 Provider: KATYA DOOLEY MD Diagnosis: ACUTE PHARYNGITI S 3 ONCE A DAY X 10 DAYS Last Documented On 02/09/2013 3:52PM By Elicia CORTEZ ; [facility] Ciprodex 0.3-0.1% OT SUSP 01/03/2012 - 01/10/2012 Provider: JAYME LOZOYA PA-C Diagnosis: INFEC OTITIS EXT USMAN NOS 4 gtts in affected ear twice daily x 7 days Last Documented On 2 1:32PM By JAYME LOZOYA PA-C ; [facility] Singulair 5 MG OR CHEW 10/17/2011 - 11/16/2011 Provide r: JAYME LOZOYA PA-C Diagnosis: UPPER RESP DIS NEC/NOS Chew one tab daily in PM. Last Documented On 2 2:58PM By JAYME LOZOYA PA-C ; [facility] Silver sulfADIAZINE 1% EX CREA 09/24/2011 - 10/02/2011 Provider: KATYA DOOLEY MD Diagnosis: OPEN WOUND SITE NOS Last Documented On 2 11:42PM By KATYA DOOLEY MD ; [facility] Cephalexin 250 MG/5ML OR SUSR 09/20/2011 - 02/09/2013 Provider: Diagnosis: ONE TSP QID X 10 DAYS, PRESCRIBED TO ER Last Documented On 3 3:14PM By CAMILO CORTEZ ; [facility] Medications Administered Includes: Administered Medications in patient's chart No Administered Medications Recorded Results Includes: Results from 05/20/2023 through 05/20/2024 No Results Recorded For Specified Dates History of Present Illness History of Present Illness not supported for this document type No History of Present Illness Recorded Social History Description Last Updated control is practiced condoms 100% 05/17/2022 Last Documented On 2 2:48PM ; [facility] Education history 05/17/2022 Last Documented On 2 2:48PM ; [facility] Not a smoker 05/17/2022 Last Documented On 2 2:48PM ; [facility] Sexually active 05/17/2022 Last Documented On 2 2:48PM ; [facility] Single 05/17/2022 Last Documented On 2 2:48PM ; [facility] Sexually active with 1 partners in the l ast year 05/17/2022 Last Documented On 2 2:48PM ; [facility] Does not have anal sex 05/17/2022 Last Documented On 2 2:48PM ; [facility] Has not used injectable drugs 05/17/2022 Last Documented On 2 2:48PM ; [facility] Has sex with males only 05/17/2022 Last Documented On 2 2:48PM ; [facility] No consumption of alcohol 05/17/2022 Last Documented On 2 2:48PM ; [facility] Partner has not had a STD in the past ye ar 05/17/2022 Last Documented On 2 2:48PM ; [facility] Patient has not had sex unde r the influence of alcohol or drugs in the last year 05/17/2022 Last Documented On 2 2:48PM ; [facility] Sexual partner has not had o ther partners while in relationship with patient 05/17/2022 Last Documented On 2 2:48PM ; [facility] Sexual partner has not had sex with pros titutes 05/17/2022 Last Documented On 2 2:48PM ; [facility] Activities 09/24/2017 Last Documented On 8 4:46PM ; [facility] Amount of sleep 09/24/2017 Last Documented On 8 4:46PM ; [facility] The racial background was unknown ethnic minority 10/15/2014 Last Documented On 5 4:56PM ; [facility] No tobacco use 10/15/2014 Last Documented On 5 4:56PM ; [facility] Not using alcohol 10/15/2014 Last Documented On 5 4:56PM ; [facility] Not using drugs 10/15/2014 Last Documented On 5 4:56PM ; [facility] Smoking status : Never smoker 08/18/2014 Last Documented On 5 3:30PM ; [facility] No recent change in sleep 10/17/2011 Last Documented On 2 3:02PM ; [facility] No recent decrease in activity 2 Last Documented On 2 3:02PM ; [facility] Procedures and Surgical History Surgical History Last Updated Surgical / procedural history RT LABIAL HERNIA [id number] 09/24/2011 Last Documented On 2 11:46PM ; [facility] [facility] Medical History Includes: Medical History in patient's chart Description Last Updated LMP: 06/02/2022 06/20/2022 Last Documented On 3 4:20PM ; [facility] Primary Care Provider: NONE 05/17/2022 Last Documented On 2 2:48PM ; [facility] 0 05/17/2022 Last Documented On 2 2:48PM ; [facility] Condoms 05/17/2022 Last Documented On 2 2:48PM ; [facility] No previous STD 05/17/2022 Last Documented On 2 2:48PM ; [facility] Please list all surgeries: Labial Hernia 2004 05/17/2022 Last Documented On 2 2:48PM ; [facility] Not taking medication 09/24/2017 Last Documented On 8 4:46PM ; [facility] A PPD was not performed 10/15/2014 Last Documented On 5 4:56PM ; [facility] Blood pressure was not high 10/15/2014 Last Documented On 5 4:56PM ; [facility] No cardiac problems 10/15/2014 Last Documented On 5 4:56PM ; [facility] No hearing problems 10/15/2014 Last Documented On 5 4:56PM ; [facility] No heart murmur 10/15/2014 Last Documented On 5 4:56PM ; [facility] No previous hospitalizations 10/15/2014 Last Documented On 5 4:56PM ; [facility] No trauma to the head 10/15/2014 Last Documented On 5 4:56PM ; [facility] Family History Includes: Family History in patient's chart Description Last Updated Mother-hyperhomocysteinemia 05/17/2022 Last Documented On 2 2:48PM ; [facility] No diagnosis of family history of malign ant female breast neoplasm 05/17/2022 Last Documented On 2 2:48PM ; [facility] No diagnosis of family history of malign ant neoplasm of large intestine 05/17/2022 Last Documented On 2 2:48PM ; [facility] No diagnosis of family history of malign ant neoplasm of ovary 05/17/2022 Last Documented On 2 2:48PM ; [facility] Family history of Anemia 05/17/2022 Last Documented On 2 2:48PM ; [facility] Maternal history of Anemia 05/17/2022 Last Documented On 2 2:48PM ; [facility] Maternal history of gallbladder disease 05/17/2022 Last Documented On 2 2:48PM ; [facility] Paternal history of gallbladder disease 05/17/2022 Last Documented On 2 2:48PM ; [facility] Family history of acute myocardial infar ction MAT GF IN 40s (Smoker) 09/22/2018 Last Documented On 9 4:12PM ; [facility] Family history of anxiety disorder NOS M OTHER AND FATHER 09/22/2018 Last Documented On 9 4:12PM ; [facility] Family history of hypertension FATHER Last Documented On 9 4:12PM ; [facility] No family history of diabetes mellitus 0 10/15/2014 Last Documented On 5 4:56PM ; [facility] No family history of sudden early deaths 10/15/2014 Last Documented On 5 4:56PM ; [facility] Family history unchanged 08/18/2014 Last Documented On 5 3:30PM ; [facility] Review of Systems Review of Systems not supported for this document type No Review of Systems Recorded Mental Status No Mental Status Recorded Functional Status No Functional Status Recorded Physical Exam Physical Exam not supported for this document type No Physical Exam Recorded Immunizations Includes: Immunizations in patient's chart Vaccine Dose # Date Site Reaction(s) Status Source Adacel (Tdap) 1 10/15/2014 Right Arm Compl ete (Administered) [facility] Last Documented On 5 4:37PM ; [facility] Meningococcal ACYW-135 (Menactra) 1 03/03/2015 Right Arm Complete (Administered) [facility] Last Documented On 5 2:11PM ; [facility] Allergies Includes: Active, inactive, and resolved Allergies No Known Allergies Insurance Includes: Active Insurance Policies Plan Name Member ID Group # Subscriber Relationship Effect angie Dates 1 - [employer] [place] [facility] [facility] [id number] TERE MEJIA Self Clinical Notes Includes: Signed Clinical Notes starting from 06/22/2022 No Clinical Notes Recorded
--- OUTSIDE RECORDS SUMMARY | 2024-05-20 23:51 | XMS_ITS | Clinical Summary ---
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 Last Documented On 2 11:02AM ; [facility]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 Plan of Treatment No Plan of Treatment Recorded Assessments Includes: Assessments from this encounter No Assessments Recorded Medical Equipment - Implanted Devices Includes: Current Devices No Medical Equipment Recorded Medications Includes: Medications discussed during this encounter and other current Medications Past Medications on file Condoms Miscellaneous 06/20/2022 - 07/02/2022 Provider: SONJA VEGA Diagnosis: Encounter for ot h general cnsl and advice on contraception as directed Last Documented On 3 4:25PM By SONJA ALVA ; [facility] metroNIDAZOLE 0.75% Vaginal Gel 05/20/2022 - 05/25/2022 Provider: SONJA VEGA Diagnosis: Acute vaginitis as directed 1 LIDA PER VAGINA DAILY X 5 Last Documented On 2 10:07AM By S[facility]JA [facility] ; [facility] Ventolin HFA 108 (90 Base)MCG/ACT Inhalation Aerosol, solution 09/22/2018 - 10/22/2018 Provider: JAYME LOZOYA PA-C Diagnosis: Shortness of manuel ath 2 puffs q 4-6 hrs PRN Last Documented On 9 4:04PM By JAYME LOZOYA PA-C ; [facility] Penicillin V Potassium 250 MG/5ML Solution, when reconstituted 08/18/2014 - 08/28/2014 Provider: ZAFAR QUEZADA [facility] Diagnosis: ACUTE PHARYNGITI S as directed 5ml BID x 10 days Last Documented On 5 3:26PM By ZAFAR QUEZADA [facility] ; [facility] Amoxicillin 250 MG OR CAPS 09/04/2013 - 09/14/2013 Provider: JAYME LOZOYA PA-C Diagnosis: STREP SORE THROA T Take 3 capsules once daily x 10 days Last Documented On 4 2:19PM By JAYME LOZOYA PA-C ; [facility] Amoxicillin 250 MG OR CAPS 02/09/2013 - 02/19/2013 Provider: KATYA DOOLEY MD Diagnosis: ACUTE PHARYNGITI S 3 ONCE A DAY X 10 DAYS Last Documented On 02/09/2013 3:52PM By Elicia CORTEZ ; [facility] Ciprodex 0.3-0.1% OT SUSP 01/03/2012 - 01/10/2012 Provider: JAYME LOZOYA PA-C Diagnosis: INFEC OTITIS EXT USMAN NOS 4 gtts in affected ear twice daily x 7 days Last Documented On 2 1:32PM By JAYME LOZOYA PA-C ; [facility] Singulair 5 MG OR CHEW 10/17/2011 - 11/16/2011 Provide r: JAYME LOZOYA PA-C Diagnosis: UPPER RESP DIS NEC/NOS Chew one tab daily in PM. Last Documented On 2 2:58PM By JAYME LOZOYA PA-C ; [facility] Silver sulfADIAZINE 1% EX CREA 09/24/2011 - 10/02/2011 Provider: KATYA DOOLEY MD Diagnosis: OPEN WOUND SITE NOS Last Documented On 2 11:42PM By KATYA DOOLEY MD ; [facility] Medications Administered Includes: Administered Medications [...] Surgical / procedural history RT LABIAL HERNIA [id number] 09/24/2011 Last Documented On 2 10:59AM ; [facility] Medical History Includes: Medical History addressed during this encounter Description Last Updated LMP: 05/08/2022 06/20/2022 Last Documented On 2 10:59AM ; [facility] Primary Care Provider: NONE 05/17/2022 Last Documented On 2 10:59AM ; [facility] 0 05/17/2022 Last Documented On 2 10:59AM ; [facility] Condoms 05/17/2022 Last Documented On 2 10:59AM ; [facility] No previous STD 05/17/2022 Last Documented On 2 10:59AM ; [facility] Please list all surgeries: Labial Hernia 2004 05/17/2022 Last Documented On 2 10:59AM ; [facility] Not taking medication 09/24/2017 Last Documented On 2 10:59AM ; [facility] A PPD was not performed 10/15/2014 Last Documented On 2 10:59AM ; [facility] Blood pressure was not high 10/15/2014 Last Documented On 2 10:59AM ; [facility] No cardiac problems 10/15/2014 Last Documented On 2 10:59AM ; [facility] No hearing problems 10/15/2014 Last Documented On 2 10:59AM ; [facility] No heart murmur 10/15/2014 Last Documented On 2 10:59AM ; [facility] No previous hospitalizations 10/15/2014 Last Documented On 2 10:59AM ; [facility] No trauma to the head 10/15/2014 Last Documented On 2 10:59AM ; [facility] Family History Includes: Family History addressed during this encounter Description Last Updated Mother-hyperhomocysteinemia 05/17/2022 Last Documented On 2 10:59AM ; [facility] No diagnosis of family history of malign ant female breast neoplasm 05/17/2022 Last Documented On 2 10:59AM ; [facility] No diagnosis of family history of malign ant neoplasm of large intestine 05/17/2022 Last Documented On 2 10:59AM ; [facility] No diagnosis of family history of malign ant neoplasm of ovary 05/17/2022 Last Documented On 2 10:59AM ; [facility] Family history of Anemia 05/17/2022 Last Documented On 2 10:59AM ; [facility] Maternal history of Anemia 05/17/2022 Last Documented On 2 10:59AM ; [facility] Maternal history of gallbladder disease 05/17/2022 Last Documented On 2 10:59AM ; [facility] Paternal history of gallbladder disease 05/17/2022 Last Documented On 2 10:59AM ; [facility] Family history of acute myocardial infar ction MAT GF IN 40s (Smoker) 09/22/2018 Last Documented On 2 10:59AM ; [facility] Family history of anxiety disorder NOS M OTHER AND FATHER 09/22/2018 Last Documented On 2 10:59AM ; [facility] Family history of hypertension FATHER Last Documented On 2 10:59AM ; [facility] No family history of diabetes mellitus 0 10/15/2014 Last Documented On 2 10:59AM ; [facility] No family history of sudden early deaths 10/15/2014 Last Documented On 2 10:59AM ; [facility] Family history unchanged 08/18/2014 Last Documented On 2 10:59AM ; [facility] Review of Systems Includes: Review of [...] Time Diagnosis CHART UPDATE SONJA LOTT RN CHRISTIN 05/25/2022 10:59AM 11:59PM Insurance Includes: Active Insurance Policies Plan Name Member ID Group # Subscriber Relationship Effect angie Dates 1 - [employer] [place] [id number] TERE MEJIA Self Clinical Notes Includes: Clinical Notes from this encounter No Clinical Notes Recorded
--- OUTSIDE RECORDS SUMMARY | 2024-05-20 23:51 | XMS_ITS ---
Care Plan - [facility] Created on: May 20, 2024 TERE MEJIA : 2005 Sex: Female Author Organization [facility] Address [address] [place] [address] Phone Care Team Providers Care Chief I Dispatcher Name Role Phone FREDA BAIG, ORIANA Dwyer Unavailable [phone]
--- OUTSIDE RECORDS SUMMARY | 2024-05-20 23:52 | XMS_ITS | Clinical Summary ---
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 SONJA LOTT RN [facility] Active Last Documented On 2 11:02AM ; [facility]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 Plan of Treatment No Plan of Treatment Recorded Assessments Includes: Assessments from this encounter No Assessments Recorded Medical Equipment - Implanted Devices Includes: Current Devices No Medical Equipment Recorded Medications Administered Includes: Administered Medications from this encounter No Administered Medications Recorded Results Includes: Results discussed during this encounter No Results Recorded For Specified Dates History of Present Illness Includes: History of Present Illness from this encounter No History of Present Illness Recorded Social History No Social History Recorded - Smoking Status Unknown Medical History Includes: Medical History addressed during this encounter No Medical History Recorded Family History Includes: Family History addressed during this encounter No Family History Recorded Review of Systems Includes: Review of Systems [...] Location Date Check-In Time Check-Out Time Diagnosis [Patient Encounter] KATYA DOOLEY MD [facility] 10/30/19 19 1:38PM 11:59PM Insurance Includes: Active Insurance Policies Plan Name Member ID Group # Subscriber Relationship Effect angie Dates 1 - [employer] [place] [facility] [facility] [id number] TERE MEJIA Self Clinical Notes Includes: Clinical Notes from this encounter No Clinical Notes Recorded
--- OUTSIDE RECORDS SUMMARY | 2024-05-20 23:52 | XMS_ITS | Clinical Summary ---
Author Organization [facility] Address [address] [place] [address] Phone Care Team Providers Care Hypoid Gear Tester Name Role Phone FREDA BAIG, ORIANA Dwyer Unavailable [phone] Reason for Visit and Chief Complaint gynecologic annual exam, visit for: screening for STD - The Chief Complaint is: WWE. Pt would like to discuss control, either pill or patch. 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 - Last Documented On 05/17/2022 2:48PM ; [facility] RTC 1 YEAR - Last Documented On 05/17/2022 2:48PM ; [facility] Instructions to patient Instructions for patient : B reast Self Exam discussed and technique reviewed Last Documented On 2 1:57PM ; [facility] Instructed to call if excess angie bleeding or abdominal/pelvic pain Last Documented On 2 1:57PM ; [facility] Recommend diet and exercise at least 30 min three times per week Last Documented On 2 1:57PM ; [facility] Education and Decision Aids were provided during visit for: Patient education RE: boni ng signals associated with hormonal contraceptive use including abdominal, chest, or leg pain, headaches or visual disturbances Last Documented On 2 1:57PM ; [facility] Patient Education: Daily david cium and vitamin D Last Documented On 2 1:57PM ; [facility] control consent review ed and signed Last Documented On 2 1:57PM ; [facility] Assessments Includes: Assessments from this encounter Findings - NORMAL FEMALE EXAM - Last Documented On 05/17/2022 2:48PM ; [facility] - Family history of disorders of blood and blood-forming organs - Last Documented On 05/17/2022 2:48PM ; [facility] Instructions Includes: Instructions from this encounter Instructions to patient Instructions for patient : B reast Self Exam discussed and technique reviewed Last Documented On 2 1:57PM ; [facility] Instructed to call if excess angie bleeding or abdominal/pelvic pain Last Documented On 2 1:57PM ; [facility] Recommend diet and exercise at least 30 min three times per week Last Documented On 2 1:57PM ; [facility] Education and Decision Aids were provided during visit for: Patient education RE: bonileo g signals associated with hormonal contraceptive use including abdominal, chest, or leg pain, headaches or visual disturbances Last Documented On 2 1:57PM ; [facility] Patient Education: Daily david cium and vitamin D Last Documented On 2 1:57PM ; [facility] control consent review ed and signed Last Documented On 2 1:57PM ; [facility] Medical Equipment - Implanted Devices Includes: Current Devices No Medical Equipment Recorded Medications Includes: Medications discussed during this encounter and other current Medications Past Medications on file Condoms Miscellaneous 06/20/2022 - 07/02/2022 Provider: SONJA LOTT RN [facility] Diagnosis: Encounter for ot h general cnsl and advice on contraception as directed Last Documented On 3 4:25PM By SONJA LOTT [facility] ; [facility] metroNIDAZOLE 0.75% Vaginal Gel 05/20/2022 - 05/25/2022 Provider: SONJA LOTT RN [facility] Diagnosis: Acute vaginitis as directed 1 LIDA PER VAGINA DAILY X 5 Last Documented On 2 10:07AM By SONJA LOTT [facility] ; [facility] Ventolin HFA 108 (90 Base)MCG/ACT Inhalation Aerosol, solution 09/22/2018 - 10/22/2018 Provider: JAYME LOZOYA PA-C Diagnosis: Shortness of manuel ath 2 puffs q 4-6 hrs PRN Last Documented On 9 4:04PM By JAYME LOZOYA PA-C ; [facility] Penicillin V Potassium 250 MG/5ML Solution, when reconstituted 08/18/2014 - 08/28/2014 Provider: ZAFAR QUEZADA [facility] Diagnosis: ACUTE PHARYNGITI S as directed 5ml BID x 10 days Last Documented On 5 3:26PM By ZAFAR QUEZADA [facility] ; [facility] Amoxicillin 250 MG OR CAPS 09/04/2013 - 09/14/2013 Provider: JAYME LOZOYA PA-C Diagnosis: STREP SORE THROA T Take 3 capsules once daily x 10 days Last Documented On 4 2:19PM By JAYME LOZOYA PA-C ; [facility] Amoxicillin 250 MG OR CAPS 02/09/2013 - 02/19/2013 Provider: KATYA DOOLEY MD Diagnosis: ACUTE PHARYNGITI S 3 ONCE A DAY X 10 DAYS Last Documented On 02/09/2013 3:52PM By Elicia CORTEZ ; [facility] Ciprodex 0.3-0.1% OT SUSP 01/03/2012 - 01/10/2012 Provider: JAYME LOZOYA PA-C Diagnosis: INFEC OTITIS EXT USMAN NOS 4 gtts in affected ear twice daily x 7 days Last Documented On 2 1:32PM By JAYME LOZOYA PA-C ; [facility] Singulair 5 MG OR CHEW 10/17/2011 - 11/16/2011 Provide r: JAYME LOZOYA PA-C Diagnosis: UPPER RESP DIS NEC/NOS Chew one tab daily in PM. Last Documented On 2 2:58PM By JAYME LOZOYA PA-C ; [facility] Silver sulfADIAZINE 1% EX CREA 09/24/2011 - 10/02/2011 Provider: KATYA DOOLEY MD Diagnosis: OPEN WOUND SITE NOS Last Documented On 2 11:42PM By KATYA DOOLEY MD ; [facility] Medications Administered Includes: Administered Medications from this encounter No Administered Medications Recorded Vital Signs Includes: Vital Signs from this encounter Vital Name 05/17/2022 01:18P Blood Pressure Sitting L 134/78 BP Cuff Size Regular Temp-Temporal 98.3 Height (in) 68.5 Weight (lb) 139 Body Mass Index 20.8 BMI Percentile (percentile) 42.1 Body Surface Area 1.8 Last Documented: On 05/17/2022 1:26PM ; [facility] Results Includes: Results discussed during this encounter No Results Recorded For Specified Dates History of Present Illness Includes: History of Present Illness from this encounter HPI - Allergy list reviewed - Medication list reviewed - Age at menarche 11 - Date of last menstruation 05/08 - 05/12 - Abnormal menstrual flow heavy flow heavy menstrual flow - Menstrual symptoms severe menstrual cramping Social History Description Last Updated control is practiced condoms 100% 05/17/2022 Last Documented On 2 2:48PM ; [facility] Education history 05/17/2022 Last Documented On 2 2:48PM ; [facility] Not a smoker 05/17/2022 Last Documented On 2 2:48PM ; [facility] Sexually active 05/17/2022 Last Documented On 2 2:48PM ; [facility] Single 05/17/2022 Last Documented On 2 2:48PM ; [facility] Sexually active denies any unprotected 1 00% condoms 05/17/2022 Last Documented On 2 2:48PM ; [facility] Sexually active with 1 partners in the l ast year 05/17/2022 Last Documented On 2 2:48PM ; [facility] Does not have anal sex 05/17/2022 Last Documented On 2 2:48PM ; [facility] Has not used injectable drugs 05/17/2022 Last Documented On 2 2:48PM ; [facility] Has sex with males only 05/17/2022 Last Documented On 2 2:48PM ; [facility] No consumption of alcohol 05/17/2022 Last Documented On 2 2:48PM ; [facility] Partner has not had a STD in the past ye ar 05/17/2022 Last Documented On 2 2:48PM ; [facility] Patient has not had sex unde r the influence of alcohol or drugs in the last year 05/17/2022 Last Documented On 2 2:48PM ; [facility] Sexual partner has not had o ther partners while in relationship with patient 05/17/2022 Last Documented On 2 2:48PM ; [facility] Sexual partner has not had sex with pros titutes 05/17/2022 Last Documented On 2 2:48PM ; [facility] Activities 09/24/2017 Last Documented On 2 1:17PM ; [facility] No tobacco use 10/15/2014 Last Documented On 2 1:17PM ; [facility] Not using drugs 10/15/2014 Last Documented On 2 1:17PM ; [facility] Smoking Status Unknown Procedures and Surgical History Includes: Procedures from this encounter Procedures Code Diagnosis Performing Provider Service L ocation Service Date education and instructions Last Documented On 2 1:57PM ; [facility] explanation of plan Last Documented On 2 1:57PM ; [facility] evaluation of contraceptive history perf ormed Last Documented On 2 1:57PM ; [facility] education about contraception performed Last Documented On 2 1:57PM ; [facility] reporting of contraception complications performed Last Documented On 2 1:57PM ; [facility] Discussed Contraception Pt i nformed she is not eligible for any combined contraception until thromboembolitic panel results are reviewed d/t CV risk factors. Discussed combined and progestin only contraception, pt would like OCP or patch. Pt to be contacted with results and will cont. OTC analgesics for dysmenorrhea Last Documented On 2 2:45PM ; [facility] Urged Exercise and Diet , exercise at le ast 30 min three times per week Last Documented On 2 1:57PM ; [facility] test was negative Last Documented On 2 1:57PM ; [facility] Surgical History Last Updated Surgical / procedural history RT LABIAL HERNIA [id number] 09/24/2011 Last Documented On 2 1:17PM ; [facility] Medical History Includes: Medical History addressed during this encounter Description Last Updated Primary Care Provider: NONE 05/17/2022 Last Documented On 2 2:48PM ; [facility] 0 05/17/2022 Last Documented On 2 2:48PM ; [facility] LMP: 05/08/2022 05/17/2022 Last Documented On 2 2:48PM ; [facility] Condoms 05/17/2022 Last Documented On 2 2:48PM ; [facility] No previous STD 05/17/2022 Last Documented On 2 2:48PM ; [facility] Please list all surgeries: Labial Hernia 2004 05/17/2022 Last Documented On 2 2:48PM ; [facility] Not taking medication 09/24/2017 Last Documented On 2 1:17PM ; [facility] No history of asthma 10/15/2014 Last Documented On 2 1:17PM ; [facility] No history of concussion 10/15/2014 Last Documented On 2 1:17PM ; [facility] No history of diabetes mellitus 10/16/19 Last Documented On 2 1:17PM ; [facility] No history of hematologic disorder 10/15 Last Documented On 2 1:17PM ; [facility] Family History Includes: Family History addressed during this encounter Description Last Updated Mother-hyperhomocysteinemia 05/17/2022 Last Documented On 2 2:48PM ; [facility] No diagnosis of family history of malign ant female breast neoplasm 05/17/2022 Last Documented On 2 2:48PM ; [facility] No diagnosis of family history of malign ant neoplasm of large intestine 05/17/2022 Last Documented On 2 2:48PM ; [facility] No diagnosis of family history of malign ant neoplasm of ovary 05/17/2022 Last Documented On 2 2:48PM ; [facility] Family history of Anemia 05/17/2022 Last Documented On 2 2:48PM ; [facility] Maternal history of Anemia 05/17/2022 Last Documented On 2 2:48PM ; [facility] Maternal history of gallbladder disease 05/17/2022 Last Documented On 2 2:48PM ; [facility] Paternal history of gallbladder disease 05/17/2022 Last Documented On 2 2:48PM ; [facility] Family history of acute myocardial infar ction MAT GF IN 40s (Smoker) 09/22/2018 Last Documented On 2 1:17PM ; [facility] Family history of anxiety disorder NOS M OTHER AND FATHER 09/22/2018 Last Documented On 2 1:17PM ; [facility] Family history of hypertension FATHER Last Documented On 2 1:17PM ; [facility] No family history of diabetes mellitus 0 10/15/2014 Last Documented On 2 1:17PM ; [facility] No family history of sudden early deaths 10/15/2014 Last Documented On 2 1:17PM ; [facility] Family history unchanged 08/18/2014 Last Documented On 2 1:17PM ; [facility] Review of Systems Includes: Review of Systems from this encounter Systemic: Not tiring easily. No fever, no chills, no unusual bleeding, no post coital bleeding, and no recent weight change. No pain. Head: No headache. Neck: No neck pain and no swollen glands in the neck. Eyes: No vision problems. Breasts: No breast symptoms, no breast lump, no nipple discharge, no pain in breast, and patient performs self breast exams. Cardiovascular: No chest pain or discomfort, no palpitations, and no varicosities. Pulmonary: No pulmonary symptoms, no dyspnea, no rapid breathing, no cough, and no wheezing. Gastrointestinal: No heartburn and no indigestion. No nausea, no vomiting, no abdominal pain, and no melena. No diarrhea and no constipation. Genitourinary: No hematuria, no change in urinary frequency, and no incomplete emptying of bladder. No dysuria. No genital lesion, no pain during intercourse, and no vaginal dryness. Normal menses and no menorrhagia. Dysmenorrhea. No nonmenstrual bleeding. No vaginal discharge. Endocrine: No polydipsia, no temperature intolerance, and libido has not changed. Hematologic: No blood clotting problems. Musculoskeletal: No muscle aches and no localized joint pain. Neurological: No dizziness. Psychological: No anxiety, no depression, no sleep disturbances, and a desire to continue living. Skin: No pruritus. No skin lesions and no rash. Mental Status Includes: Mental Status from this encounter Description Oriented to time, place, and person No anxiety A desire to continue living Functional Status Includes: Functional Status from this encounter No Functional Status Recorded Physical Exam Includes: Physical Exam from this encounter Allergies Includes: Active Allergies No Known Allergies Encounters Encounter Provider Location Date Check-In Time Check-Out Time Diagnosis WELL WOMAN - NEW PATIENT SONJA LOTT RN [facility] 05/17/20 22 1:15PM 2:20PM Normal Female Exam Insurance Includes: Active Insurance Policies Plan Name Member ID Group # Subscriber Relationship Effect angie Dates 1 - [place]ID [place] [facility] [id number] TERE MEJIA Self Clinical Notes Includes: Clinical Notes from this encounter No Clinical Notes Recorded
--- OUTSIDE RECORDS SUMMARY | 2024-05-20 23:52 | XMS_ITS | Encounter Summary ---
Author Organization [facility] Care Team Providers Care Director Of Orthopedics Name Role Phone Bronwyn Chavez MD Primary Care Provider [phone] Encounter Details Date Type Department Care Team (Latest Contact Info) Description 01/23/2021 Travel Social History Tobacco Use Types Packs/Day Years Used Date Smoking Tobacco: Never Alcohol Use Standard Drinks/Week Comments No 0 (1 standard drink = 0.6 oz pur e alcohol) Comments No Sex and Gender Information Value Date Recorded Sex Assigned at Not on file Legal Sex Female 11:20 PM CDT Gender Identity Not on file Sexual Orientation Not on file COVID-19 Exposure Response Date Recorded In the last month, have you been in contact with someone who was confirmed or suspected to have Coronavirus / COVID-19? No / Unsure 01/23/2021 9:40 AM CDT documented as of this encounter Plan of Treatment Not on file documented as of this encounter Visit Diagnoses Not on filedocumented in this encounter Care Teams Director Of Orthopedics Relationship Specialty Start Date End Date Bronwyn Chavez MD [address] [place] [id number] PCP - General 07/01/16 documented as of this encounter
--- OUTSIDE RECORDS SUMMARY | 2024-05-20 23:52 | XMS_ITS | Clinical Summary ---
Author Organization [facility] Address [address] [place] [address] Phone Care Team Providers Care Technical Services Manager Name Role Phone Bronwyn Chavez MD Primary Care Provider [phone] Allergies No known active allergies Medications No known medications Social History Tobacco Use Types Packs/Day Years Used Date Smoking Tobacco: Never Alcohol Use Standard Drinks/Week Comments No 0 (1 standard drink = 0.6 oz pur e alcohol) Comments No Sex and Gender Information Value Date Recorded Sex Assigned at Not on file Legal Sex Female 11:20 PM CDT Gender Identity Not on file Sexual Orientation Not on file Last Filed Vital Signs Vital Sign Reading Time Taken Comments Blood Pressure 126/83 01/23/2021 9:40 AM CDT Pulse 65 01/23/2021 9:40 AM CDT Temperature 36.2 ??C (97.2 ??F) 01/23/2021 9:40 AM CD T Respiratory Rate 18 01/23/2021 9:40 AM CDT Oxygen Saturation 99% 01/23/2021 9:40 AM CDT Inhaled Oxygen Concentration - - Weight 64.9 kg (143 lb 1.3 oz) 01/23/2021 9:40 A M CDT Height 172.7 cm (5' 8 ) 01/23/2021 9:40 AM CDT Body Mass Index 21.76 01/23/2021 9:40 AM CDT Plan of Treatment Health Maintenance Due Date Last Done Comments Hepatitis C Virus (HCV) Screening 2003 Human Papillomavirus (HPV) Immunization (1 - 3-dose series) 12/16/2018 Meningococcal B Immunization (1 of 2 - Patient Seeks Protection) 2019 Influenza Immunization (#1) 2024 11/0 11/2006, 07/30/2006, 08/18/2004, Additional history exists SARS-COV-2 Immunization (1 - 2024-25 season) 2024 Respiratory Syncytial Virus (RSV) Immunization (Adult) (1 - 1-dose 75+ series) 12/16/2078 Pneumococcal Immunization Combined Aged Out 06/16/2004, 04/21/2004, 02/17/2004 No longer eligible based on patient's age to complete this topic Hepatitis B Immunization Completed 006, 06/16/2004, 01/20/2004, Additional history exists Varicella Immunization Discontinued 01/20/2008, 2004 Measles Mumps Rubella (MMR) Immunization Discontinued 01/03/2009, 12/31/2005 Polio (IPV) Immunization Discontinued 009, 12/31/2005, 04/21/2004, Additional history exists DTaP/Tdap/Td Immunization Discontinued 2014, 01/03/2009, 12/31/2005, Additional history exists TdaP Immunization Completed 10/15/2014 Meningococcal Immunization (ACWY) Completed 01/27/2021, 03/03/2015 Rotavirus Immunization Aged Out No lo nger eligible based on patient's age to complete this topic Insurance [place] Care Teams Technical Services Manager Relationship Specialty Start Date End Date Bronwyn Chavez MD [address] [place] [address] PCP - General 07/01/16
--- OUTSIDE RECORDS SUMMARY | 2024-05-20 23:52 | XMS_ITS | Encounter Summary ---
Author Organization [facility] Address [address] [place] [address] Phone Care Team Providers Care Child And Family Therapist Name Role Phone Bronwyn Chavez MD Primary Care Provider [phone] Reason for Visit * Reason Comments Foot Pain Encounter Details Date Type Department Care Team (Late st Contact Info) Description 01/23/2021 9:44 AM CDT - 01/23/2021 12:05 PM CDT Emergency [facility] Emergency [address] [place] [id number] Zhao Balderas MD Foot sprain, right, initial encounter Discharge Disposition: Discharged to home or Selfcare Social History Tobacco Use Types Packs/Day Years [...] AM CDT documented as of this encounter Last Filed Vital Signs Vital Sign Reading [...] Mass Index 21.76 01/23/2021 9:40 AM CDT Body Mass Index Percentile 59.95% 01/23/2021 9:4 0 AM CDT Growth Chart: [facility] (Girls, 2- 20 Years) documented in this encounter Discharge Instructions * Attachments The following attachments cannot be sent through Care Everywhere. * Foot Sprain (Northern [place]) documented in this encounter ED Notes * Breonna Daniel RN - 01/23/2021 12:03 PM CDT Went into room to give discharge instructions and pt/father no longer in the room. Assume they leftwithout discharge instructions after physician updated them on xray results. Unable to get set of VS prior to discharge due to this. * Breonna Daniel RN - 01/23/2021 10:55 AM CDT Pt given warm blanket per request. Voices no complaints at this time. * Brianna Davies RN - 01/23/2021 10:10 AM CDT Patient medicated per provider orders. Patient and father educated on intended effects and side effects of medication and verbalized understanding, able to provide teach back of education. Patient given estimated time frame in ER. Call light within reach. * Zhao Balderas MD - 01/23/2021 10:04 AM CDT Chief Complaint Patient presents with ??? Foot Pain The patient is a 15-year-old female who on SaturdayJanuary 20 she was at [employer] [facility] attempted to perform toe touches when she landed wrong. She now has pain along the medial arch of her foot. She rates pain 5/10 in severity. She is able to ambulate with some difficulty. She has not takenany analgesic medication. She reports no swelling to the area. No current facility-administered medications for this encounter. No current outpatient medications on file. No Known Allergies Past Medical History Positives Diagnosis Date ??? Labial hernia ??? Wrist fracture 2007 Past Surgical History: Procedure Laterality Date ??? HERNIA REPAIR Social History Socioeconomic History ??? Marital status: Single Spouse name: Not on file ??? Number of children: Not on file ??? Years of education: Not on file ??? Highest education level: Not on file Occupational History ??? Not on file Tobacco Use ??? Smoking status: Never Smoker Substance and Sexual Activity ??? Alcohol use: No ??? Drug use: No ??? Sexual activity: Not on file Other Topics Concern ??? Not on file Social History Narrative ??? Not on file Social Determinants of Health Social determinant risk not applicable to this patient. BP 126/83 Pulse 65 Temp 97.2 ??F (36.2 ??C) (Tympanic) Resp 18 Ht 5' 8 (1.727 m) Wt 64.9kg (143 lb 1.3 oz) LMP 01/02/2021 SpO2 99% BMI 21.76 kg/m?? Review of Systems Musculoskeletal: Positive for arthralgias and gait problem. All other systems reviewed and are negative. Physical Exam Vitals and nursing note reviewed. Constitutional: Appearance: Normal appearance. She is normal weight. HENT: Head: Normocephalic and atraumatic. Right Ear: External ear normal. Left Ear: External ear normal. Eyes: Extraocular Movements: Extraocular movements intact. Conjunctiva/sclera: Conjunctivae normal. Pupils: Pupils are equal, round, and reactive to light. Cardiovascular: Rate and Rhythm: Normal rate and regular rhythm. Heart sounds: Normal heart sounds. No murmur heard. Pulmonary: Effort: Pulmonary effort is normal. No respiratory distress. Breath sounds: Normal breath sounds. No wheezing. Abdominal: General: Abdomen is flat. Bowel sounds are normal. Palpations: Abdomen is soft. Tenderness: There is no abdominal tenderness. Musculoskeletal: General: Signs of injury (Right medial arch) present. No swelling or deformity. Normal range of motion. Cervical back: Normal range of motion. Skin: General: Skin is warm and dry. Neurological: General: No focal deficit present. Mental Status: She is alert and oriented to person, place, and time. Mental status is at baseline. Psychiatric: Mood and Affect: Mood normal. Behavior: Behavior normal. Procedures Imaging Results XR FOOT 3 OR MORE VIEWS RIGHT (Final result) Result time 01/23/21 11:20:47 Final result by Miguelangel Braden MD (01/23/21 11:20:47) Impression: IMPRESSION: No evidence of fracture. Narrative: EXAM DESCRIPTION: XR FOOT 3 OR MORE VIEWS RIGHT REASON FOR STUDY: landed wrong trying to perform toe touches 4 DAYS AGO- MEDIAL FOOT PAIN AT ARCH X 4 DAYS- PAIN WITH WALKING- NO SURGERY TECHNIQUE: AP, Oblique, and Lateral Radiographs of the right foot were obtained. COMPARISON: None available FINDINGS: Bones appear intact, without evidence of fracture. No radiopaque foreign bodies are present. No focal soft tissue swelling is seen. THIS IS AN ELECTRONICALLY VERIFIED FINAL REPORT 01/23/2021 11:17 AM - Electronically signed by Miguelangel Braden M.D. AT: AT Report ID: [id number] Reading Location: [place] [address] Review of x-ray reveals no bony abnormalities.. [facility] Coding Clinical Impression 1. Foot sprain, right, initial encounter The patient remained stable throughout their ED stay. My clinical impression was discussed with thepatient/family. Radiology results were reviewed with them. I gave them the opportunity to ask questions, and addressed them as completely as possible given the information available at present. The therapeutic plan was discussed, instructions were given and the importance of primary care follow up was stressed and encouraged. The patient/family voiced understanding of the plan, indications to return, and the need for follow up. * Elicia Blandon RN - 01/23/2021 9:43 AM CDT Patient to triage accompanied by father with complaints of right foot pain since Saturday. Patient states that she did a toe-touch and came down wrong on her right foot, and it has been bothering her since. Patient states that the pain worsens with walking and movement. documented in this encounter Plan of Treatment Not on file documented as of this encounter Procedures Procedure Name Priority Date/Time Associated Diagnosis Comments XR FOOT 3 OR MORE VIEWS RIGHT STAT 01/23/2021 10:43 AM CDT documented in this encounter Results * XR FOOT 3 OR MORE VIEWS RIGHT (01/23/2021 10:43 AM CDT) Anatomical Region Laterality Modality LOWER EXTREMITY, foot Right Digital Ra diography 01/23/2021 11:1 7 AM CDT Impressions 01/23/2021 11:20 AM CDT IMPRESSION: ?? No evidence of fracture. Narrative 01/23/2021 11:20 AM CDT EXAM DESCRIPTION: ?? XR FOOT 3 OR MORE VIEWS RIGHT REASON FOR STUDY: ?? landed wrong trying to perform toe touches 4 DAYS AGO- MEDIAL FOOT PAIN AT ARCH X 4 DAYS- PAIN WITH WALKING- NO SURGERY TECHNIQUE: ?? AP, Oblique, and Lateral Radiographs of the right foot were obtained. COMPARISON: ?? None available FINDINGS: ?? Bones appear intact, without evidence of fracture. ??No radiopaque foreign bodies are present. ??No focal soft tissue swelling is seen. THIS IS AN ELECTRONICALLY VERIFIED FINAL REPORT 01/23/2021 11:17 AM - Electronically signed by Miguelangel Braden M.D. AT: AT D: ??01/23/2021 11:17 AM T: ??01/23/2021 11:17 AM Report ID: [id number] Reading Location: ??[id number] Procedure Note Miguelangel Braden MD - 01/23/2021 EXAM DESCRIPTION: XR FOOT 3 OR MORE VIEWS RIGHT REASON FOR STUDY: landed wrong trying to perform toe touches 4 DAYS AGO- MEDIAL FOOT PAIN AT ARCH X 4 DAYS- PAIN WITH WALKING- NO SURGERY TECHNIQUE: AP, Oblique, and Lateral Radiographs of the right foot were obtained. COMPARISON: None available FINDINGS: Bones appear intact, without evidence of fracture. No radiopaque foreign bodies are present. No focal soft tissue swelling is seen. THIS IS AN ELECTRONICALLY VERIFIED FINAL REPORT 01/23/2021 11:17 AM - Electronically signed by Miguelangel Braden M.D. AT: AT Report ID: [id number] Reading Location: [id number] IMPRESSION: No evidence of fracture. us Zhao Balderas MD IMG DIAGNOSTIC ORDERABLES F inal Result documented in this encounter Visit Diagnoses Diagnosis Foot sprain, right, initial encounter- Primary documented in this encounter Administered Medications Inactive Administered Medications - up to 3 most recent administrations Medication Order MAR Action Action Date Dose Rate Site acetaminophen (TYLENOL) tablet 650 mg 650 mg, Oral, ONCE, 1 dose, On Sat01/23/21 at 1030, Maximum dose of acetaminophen is 4000 mg from all sources in 24 hours. Given 01/23/2021 10:09 AM CDT 650 mg ibuprofen (MOTRIN) tablet 600 mg 600 mg, Oral, ONCE, 1 dose, On Sat01/23/21 at 1030 Given 01/23/2021 10:09 AM CDT 600 mg documented in this encounter Active and Recently Administered Medications Times are shown in CDT. Scheduled Medication Order 01/21/2021 01/22/2021 01/23/2021 acetaminophen (TYLENOL) tablet 650 mg (COMPLETED) 650 mg, Oral, ONCE, 1 dose, On Sat01/23/21 at 1030, Maximum dose of acetaminophen is 4000 mg from all sources in 24 hours. 1009 (Given - Provid er: Brianna Davies RN) ibuprofen (MOTRIN) tablet 600 mg (COMPLETED) 600 mg, Oral, ONCE, 1 dose, On Sat01/23/21 at 1030 1009 (Given - Provid er: Brianna Davies RN) documented in this encounter Care Teams Child And Family Therapist Relationship Specialty Start Date End Date Bronwyn Chavez MD [address] [place] [id number] PCP - General 07/01/16 documented as of this encounter
--- OUTSIDE RECORDS SUMMARY | 2024-05-20 23:56 | XMS_ITS | Clinical Summary ---
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 06/22/22 SONJA LOTT RN Zuleima P BC Last Documented On 4 7:12AM ; [facility] Referrals To Diagnosis Oncology/Hematology [facility] OP - [address] [place] [address] - Other thrombophilia Note: hyperhomocystinuria an d MTHFR heterozygous, prothrombin gene mutation pending, consult and clearnace for progestin only contraceptives Last Documented On 4 11:04AM ; [facility] Assessments Includes: Assessments from this encounter Findings - [Z30.09 - Encounter for other general counseling and advice on contraception] Contraceptive management - Last Documented On 06/20/2022 4:20PM ; [facility] - [E72.11 - Homocystinuria] Homocystinuria - Last Documented On 06/20/2022 4:20PM ; [facility] - [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 - Last Documented On 06/20/2022 4:20PM ; [facility] Medical Equipment - Implanted Devices Includes: Current Devices No Medical Equipment Recorded Medications Includes: Medications discussed during this encounter and other current Medications New / Renewed during this visit OSNJA LOTT RN CHRISTIN on 06/20/2022 Condoms Miscellaneous Provider: SONJA WARD 12 day supply: 12 each, 0 refills Diagnosis: Encounter for ot general cnsl and advice on contraception as directed Pharmacy: [address], [address] - Last Documented On 3 4:25PM By SONJA ALVA ; [facility] Past Medications on file metroNIDAZOLE 0.75% Vaginal Gel 05/20/2022 - 05/25/2022 Provider: SONJA WARD Diagnosis: Acute vaginitis as directed 1 LIDA PER VAGINA DAILY X 5 Last Documented On 2 10:07AM By SONJA ALVA ; [facility] Ventolin HFA 108 (90 Base)MCG/ACT Inhalation Aerosol, solution 09/22/2018 - 10/22/2018 Provider: JAYME LOZOYA PA-C Diagnosis: Shortness of manuel ath 2 puffs q 4-6 hrs PRN Last Documented On 9 4:04PM By JAYME LOZOYA PA-C ; [facility] Penicillin V Potassium 250 MG/5ML Solution, when reconstituted 08/18/2014 - 08/28/2014 Provider: ZAFAR QUEZADA PMHNPAmmonBC EDGE PLUGGER-BC Diagnosis: ACUTE PHARYNGITI S as directed 5ml BID x 10 days Last Documented On 5 3:26PM By ZAFAR QUEZADA EDGE PLUGGER- ; [facility] Amoxicillin 250 MG OR CAPS 09/04/2013 - 09/14/2013 Provider: JAYME LOZOYA PA-C Diagnosis: STREP SORE THROA T Take 3 capsules once daily x 10 days Last Documented On 4 2:19PM By JAYME LOZOYA PA-C ; [facility] Amoxicillin 250 MG OR CAPS 02/09/2013 - 02/19/2013 Provider: KATYA DOOLEY MD Diagnosis: ACUTE PHARYNGITI S 3 ONCE A DAY X 10 DAYS Last Documented On 02/09/2013 3:52PM By Elicia CORTEZ ; [facility] Ciprodex 0.3-0.1% OT SUSP 01/03/2012 - 01/10/2012 Provider: JAYME LOZOYA PA-C Diagnosis: INFEC OTITIS EXT USMAN NOS 4 gtts in affected ear twice daily x 7 days Last Documented On 2 1:32PM By JAYME LOZOYA PA-C ; [facility] Singulair 5 MG OR CHEW 10/17/2011 - 11/16/2011 Provide r: JAYME LOZOYA PA-C Diagnosis: UPPER RESP DIS NEC/NOS Chew one tab daily in PM. Last Documented On 2 2:58PM By JAYME LOZOYA PA-C ; [facility] Silver sulfADIAZINE 1% EX CREA 09/24/2011 - 10/02/2011 Provider: KATYA DOOLEY MD Diagnosis: OPEN WOUND SITE NOS Last Documented On 2 11:42PM By KATYA DOOLEY MD ; [facility] Medications Administered Includes: Administered Medications from this encounter No Administered Medications Recorded Vital Signs Includes: Vital Signs from this encounter Vital Name 06/20/2022 03:12P Blood Pressure Sitting L 128/78 BP Cuff Size Regular Temp-Temporal 98.7 Height (in) 68.5 Weight (lb) 137 Body Mass Index 20.5 BMI Percentile (percentile) 37.4 Body Surface Area 1.7 Last Documented: On 06/20/2022 3:16PM ; [facility] Results Includes: Results discussed during this encounter HOMOCYSTEINE [facility] La boratory Ordered by SONJA LOTT RN [facility] on 05/17/2022 [address] [facility], [place], [address] Collected: 05/17/2022 Report ed: 05/21/2022 12:28 tel:[phone] Last Documented On 2 11:08AM ; [facility] Reviewed by SONJA LOTT RN [facility] on 05/25/2022; All test results are final unless otherwise noted. HOMOCYSTEINE 16.1 umol/L (<10.4) H (High) Last Documented On 05/25/2022 7:22AM ; [facility] Note: Homocysteine is increased by functional deficiency offolate or vitamin B12. Testing for methylmalonic aciddifferentiates between these deficiencies. Other causesof increased homocysteine include renal failure, folateantagonists such as methotrexate and phenytoin, andexposure to nitrous oxide.Kaylee Meneses et al., Marcelle Director Of Rooms Med. 1999;131(5):331-9.THIS TEST WAS PERFORMED AT:[facility] [id number] [place] [address]RKPEPZB BECKER,DO,MPHResponsible Observer: (rfl) MTHFR [facility] La boratory Ordered by SONJA LOTT RN [facility] on 05/17/2022 [address] [facility], [place], [address] Collected: 05/17/2022 Report ed: 05/25/2022 06:58 tel:[phone] Last Documented On 2 11:08AM ; [facility] Reviewed by SONJA LOTT RN [facility] on 05/25/2022; All test results are final unless otherwise noted. 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 Thisresult is not [...] reduced enzymeactivity. The thermolabile variant C677T [NM [id number]:c.665C>T (p.A222V)] and Q9178T [c. 1286A>C (p.E429A)] occurfrequently in the general [...] is uncertainand is not recommended by The [employer] [employer] MedicalGen[employer] and Gen[employer] (ACMG) or the [place] Congress ofObstetricians and Gynecologists (ACOG) in the [...] V Leiden and prothrombin genemutations.The C677T and F5254D variants are detected by amplificationof the selected [...] your local [facility]'s geneticcounselor or call [facility] ([phone]) for assistancewith interpretation of these results.For additional information, please refer tohttp://education.in2nite.Project WBS/faq/FAQ 66 (This linkis being provided for informational/educational purposesonly.)This test was developed and its analytical performancecharacteristics have been determined by [facility]. It has not beencleared or approved by the U.S. Food and DrugAdministration. This assay has been validated pursuant tothe CLIA regulations and is used for clinical purposes.THIS TEST WAS PERFORMED AT:[facility] [id number] [facility] [facility] [place] [address]SPJEMBRETT ALLEN MD,PHD,MBAResponsible Observer: (rfl) History of Present [...] Surgical / procedural history RT LABIAL HERNIA [id number] 09/24/2011 Last Documented On 3 3:12PM ; [facility] Medical History Includes: Medical History addressed during this encounter Description Last Updated LMP: 06/02/2022 06/20/2022 Last Documented On 3 4:20PM ; [facility] Primary Care Provider: NONE 05/17/2022 Last Documented On 3 3:12PM ; [facility] 0 05/17/2022 Last Documented On 3 3:12PM ; [facility] Condoms 05/17/2022 Last Documented On 3 3:12PM ; [facility] No previous STD 05/17/2022 Last Documented On 3 3:12PM ; [facility] Please list all surgeries: Labial Hernia 2004 05/17/2022 Last Documented On 3 3:12PM ; [facility] Not taking medication 09/24/2017 Last Documented On 3 3:12PM ; [facility] A PPD was not performed 10/15/2014 Last Documented On 3 3:12PM ; [facility] Blood pressure was not high 10/15/2014 Last Documented On 3 3:12PM ; [facility] No cardiac problems 10/15/2014 Last Documented On 3 3:12PM ; [facility] No hearing problems 10/15/2014 Last Documented On 3 3:12PM ; [facility] No heart murmur 10/15/2014 Last Documented On 3 3:12PM ; [facility] No previous hospitalizations 10/15/2014 Last Documented On 3 3:12PM ; [facility] No trauma to the head 10/15/2014 Last Documented On 3 3:12PM ; [facility] Family History Includes: Family History addressed during this encounter Description Last Updated Mother-hyperhomocysteinemia 05/17/2022 Last Documented On 3 3:12PM ; [facility] No diagnosis of family history of malign ant female breast neoplasm 05/17/2022 Last Documented On 3 3:12PM ; [facility] No diagnosis of family history of malign ant neoplasm of large intestine 05/17/2022 Last Documented On 3 3:12PM ; [facility] No diagnosis of family history of malign ant neoplasm of ovary 05/17/2022 Last Documented On 3 3:12PM ; [facility] Family history of Anemia 05/17/2022 Last Documented On 3 3:12PM ; [facility] Maternal history of Anemia 05/17/2022 Last Documented On 3 3:12PM ; [facility] Maternal history of gallbladder disease 05/17/2022 Last Documented On 3 3:12PM ; [facility] Paternal history of gallbladder disease 05/17/2022 Last Documented On 3 3:12PM ; [facility] Family history of acute myocardial infar ction MAT GF IN 40s (Smoker) 09/22/2018 Last Documented On 3 3:12PM ; [facility] Family history of anxiety disorder NOS M OTHER AND FATHER 09/22/2018 Last Documented On 3 3:12PM ; [facility] Family history of hypertension FATHER Last Documented On 3 3:12PM ; [facility] No family history of diabetes mellitus 0 10/15/2014 Last Documented On 3 3:12PM ; [facility] No family history of sudden early deaths 10/15/2014 Last Documented On 3 3:12PM ; [facility] Family history unchanged 08/18/2014 Last Documented On 3 3:12PM ; [facility] Review of Systems Includes: Review of [...] CONSULTATION- ESTABLISHED PATIENT SONJA LOTT RN NP [facility] 06/20/19 23 2:58PM 3:59PM Homocystinuri a,Methylenete trahydrofolat e Reductase Deficiency,Co ntraceptive Management Insurance Includes: Active Insurance Policies Plan Name Member ID Group # Subscriber Relationship Effect angie Dates 1 - [place]ID [place] [facility] [id number] TERE MEJIA Self Clinical Notes Includes: Clinical Notes from this encounter No Clinical Notes Recorded
--- OUTSIDE RECORDS SUMMARY | 2024-05-20 23:56 | XMS_ITS ---
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 Plan discussed and patient/parent/caregiver states understanding PROBLEM VISIT with JAYME LOZOYA PA-C 09/22/2018 Last Documented On 9 4:12PM ; [facility] Ordered follow-up visit in 1 month with an office visit. Get fasting labs anytime Use inhaler prior to activity and as needed and see if there is any change. Discussed possible anxiety meds (Effexor since mother is on it). 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 Plan discussed and patient/parent/caregiver states understanding SICK VISIT with JAYME LOZOYA PA-C 05/30/2016 Last Documented On 6 5:07PM ; [facility] Ordered follow-up visit as n eeded with an office visit. Continue to alternate tylenol and motrin every 3 hrs for fever/pain. Push fluids, lots of rest. Dayquil/nyquil as needed. Call sooner if symptoms worsen/persist beyond 7 days SICK VISIT with JAYME LOZOYA PA-C 05/30/2016 Last Documented On 6 5:07PM ; [facility] Ordered patient will call fo r appointment as needed SAME DAY S[facility] V[facility]- 08/18/2015 Last Documented On 6 11:14AM ; [facility] Ordered return to the clinic if condition worsens or new symptoms arise SAME DAY SICK VISIT with ZAFAR QUEZADA HNP-BC [facility]- 08/18/2015 Last Documented On 6 11:14AM ; [facility] Ordered patient will call fo r appointment as needed SICK VISIT with ZAFAR QUEZADA HNP-BC MACHINIST/MACHINE BUILDER- 08/18/2014 Last Documented On 5 3:30PM ; [facility] Ordered return to the clinic if condition worsens or new symptoms arise SICK VISIT with ZAFAR QUEZADA HNP-BC MACHINIST/MACHINE BUILDER-BC 08/18/2014 Last Documented On 5 3:30PM ; [facility] Ordered Clinical summary pro vided to patient . Plan discussed and patient/parent/caregiver states understanding PROBLEM VISIT with JAYME LOZOYA PA-C 02/16/2014 Last Documented On 4 4:22PM ; [facility] Ordered follow-up visit as n eeded with an office visit. Discussed normal puberty--first signs of puberty is breast buds PROBLEM VISIT with JAYME LOZOYA PA-C 02/16/2014 Last Documented On 4 4:22PM ; [facility] Ordered Clinical summary pro vided to patient . Plan discussed and patient/parent/caregiver states understanding SICK VISIT with JAYME LOZOYA PA-C 09/04/2013 Last Documented On 4 2:23PM ; [facility] Ordered follow-up visit as n eeded with an office visit. Call if symptoms worsen/persist beyond 3-5 days SICK VISIT with JAYME LOZOYA PA-C 09/04/2013 Last Documented On 4 2:23PM ; [facility] Ordered Clinical summary pro vided to patient . Plan discussed and patient understands SICK VISIT with JAYME LOZOYA PA-C 06/02/2013 Last Documented On 3 2:25PM ; [facility] Ordered follow-up visit as n eeded with an office visit. Fluids, rest. Hot steamy showers, vicks. Zyrtec for nose. Call if symptoms worsen/persist Handout on colds and the flu from [email or web address] given SICK VISIT with JAYME LOZOYA PA-C 06/02/2013 Last Documented On 3 2:25PM ; [facility] Ordered follow-up visit as n eeded with an office visit. Daily zyrtec/claritin for secretions. Call if sxs worsen/persist SICK VISIT with JAYME LOZOYA PA-C 01/03/2012 Last Documented On 2 1:44PM ; [facility] Ordered follow-up visit as n eeded with an office visit. Salt water gargles, losenges/popsicles/etc for sore throat. Daily Claritin/zyrtec for secretions. Trial of singulair x 2 wks or possibly for 4 wks. Call if sxs worsen/persist SICK VISIT with JAYME LOZOYA PA-C 10/17/2011 Last Documented On 2 3:02PM ; [facility] Ordered analgesics (non-ster oidal anti-inflammatory agents) NEW PATIENT VISIT with KATYA DOOLEY MD 09/24/2011 Last Documented On 2 11:46PM ; [facility] Ordered patient to call if galo daniels develops NEW PATIENT VISIT with KATYA DOOLEY MD 09/24/2011 Last Documented On 2 11:46PM ; [facility] Referrals To Diagnosis Oncology/Hematology [facility] [address] [place] [address] - Other thrombophilia Note: hyperhomocystinuria an d MTHFR heterozygous, prothrombin gene mutation pending, consult and [place] for progestin only contraceptives Last Documented On 4 11:04AM ; [facility] Instructions to patient Instructions for patient : B reast Self Exam discussed and technique reviewed Last Documented On 2 1:57PM ; [facility] Instructed to call if excess angie bleeding or abdominal/pelvic pain Last Documented On 2 1:57PM ; [facility] Recommend diet and exercise at least 30 min three times per week Last Documented On 2 1:57PM ; [facility] Instructions for patient Last Documented On 8 4:15PM ; [facility] Instructions for patient Last Documented On 6 10:44AM ; [facility] No Special Instructions or D evices Last Documented On 5 4:36PM ; [facility] Instructions for patient Last Documented On 5 3:16PM ; [facility] Watch for signs/symptoms of infection Last Documented On 2 11:40PM ; [facility] Education and Decision Aids were provided during visit for: Patient education RE: ramo soria signals associated with hormonal contraceptive use including abdominal, chest, or leg pain, headaches or visual disturbances Last Documented On 2 1:57PM ; [facility] Patient Education: Daily david cium and vitamin D Last Documented On 2 1:57PM ; [facility] control consent review ed and signed Last Documented On 2 1:57PM ; [facility] Anticipatory guidance: limit computer and video time Last Documented On 8 4:45PM ; [facility] Discussed use of seat belts Last Documented On 8 4:45PM ; [facility] Discussed use of smoke detec tors Last Documented On 8 4:45PM ; [facility] Discussed 'child-proofing' t he house advised to remove guns from home or keep unloaded and locked away Last Documented On 8 4:45PM ; [facility] Discussed avoiding sun expos ure Last Documented On 8 4:45PM ; [facility] Discussed bicycle safety Last Documented On 8 4:45PM ; [facility] Discussed sports safety Last Documented On 8 4:45PM ; [facility] Discussed nutritional needs teach healthy choices including fruits and vegetables Last Documented On 8 4:45PM ; [facility] Discussed activities supervi se activities with peers Last Documented On 8 4:45PM ; [facility] Discussed concerns about exe rcise : promote physical activity Last Documented On 8 4:45PM ; [facility] Discussed concerns about dis cipline reinforce limits, family rules, homework and chores Last Documented On 8 4:45PM ; [facility] Discussed concerns about set ting disciplinary limits and establish consequences Last Documented On 8 4:45PM ; [facility] Discussed concerns about tel evision : limit time spent watching Last Documented On 8 4:45PM ; [facility] Discussed concerns about sex ual activity Last Documented On 8 4:45PM ; [facility] Discussed concerns about uns afe sexual practices Last Documented On 8 4:45PM ; [facility] Discussed concerns about tob acco use director counseling bureau to avoid~ Last Documented On 8 4:45PM ; [facility] Discussed concerns about alc ohol use director counseling bureau to avoid Last Documented On 8 4:45PM ; [facility] Discussed concerns about ill icit drug use director counseling bureau to avoid Last Documented On 8 4:45PM ; [facility] Discussed concerns Recommend ed Gardasil series--mother wanted to wait Last Documented On 5 4:36PM ; [facility] Assessments Includes: Assessments for all patient encounters Findings Encounter Date Contraceptive management CONSULTATION - ESTABLISHED PATIENT with SONJA LOTT RN [facility] 06/20/2022 Last Documented On 3 4:20PM ; [facility] Homocystinuria CONSULTATION- EST ABLISHED PATIENT with SONJA LOTT RN [facility] 06/20/2022 Last Documented On 3 4:20PM ; [facility] Methylenetetrahydrofolate re ductase deficiency CONSULTATION- ESTABLISHED PATIENT with SONJA LOTT RN [facility] 06/20/2022 Last Documented On 3 4:20PM ; [facility] Vaginitis CHART UPDATE with SONJA LOTT RN [facility] 05/20/2022 Last Documented On 2 9:54AM ; [facility] Family history of disorders of blood and blood-forming organs WELL WOMAN - NEW PATIENT with SONJA LOTT RN [facility] 05/17/2022 Last Documented On 2 2:48PM ; [facility] NORMAL FEMALE EXAM WELL WOMAN - NEW PATIENT with SONJA LOTT RN [facility] 05/17/2022 Last Documented On 2 2:48PM ; [facility] Anxiety disorder NOS ? PROBLEM VISIT with JAYME LOZOYA PA-C 09/22/2018 Last Documented On 9 4:12PM ; [facility] Routine history and physical PROBLEM VISIT with JAYME LOZOYA PA-C 09/22/2018 Last Documented On 9 4:12PM ; [facility] Shortness of breath PROBLEM VISIT with JAYME LOZOYA PA-C 09/22/2018 Last Documented On 9 4:12PM ; [facility] Patient is approved for part icipation in School, Physical Education, and Sports for 1 year SPORTS PHYSICAL with ZAFAR QUEZADA [facility] 09/24/2017 Last Documented On 8 4:46PM ; [facility] Routine adolescent history a nd physical (12 - 17 yrs) SPORTS PHYSICAL with ZAFAR QUEZADA [facility] 09/24/2017 Last Documented On 8 4:46PM ; [facility] SCHOOL/SPORT PHYSICAL SPORTS PHYSICAL wi th ZAFAR QUEZADA [facility] 09/24/2017 Last Documented On 8 4:46PM ; [facility] Influenza type B SICK VISIT with JAYME HAMMOND-C 05/30/2016 Last Documented On 6 5:07PM ; [facility] Common cold SAME DAY SICK VISIT with CISCO QUEZADA [facility] 08/18/2015 Last Documented On 6 11:14AM ; [facility] Patient is approved for part icipation in School, Physical Education, and Sports for 1 year SPORTS PHYSICAL with JAYME HAMMOND-C 10/15/2014 Last Documented On 5 4:56PM ; [facility] Normal routine history and p hysical well-child (6 - 12) SPORTS PHYSICAL with JAYME HAMMOND-C 10/15/2014 Last Documented On 5 4:56PM ; [facility] Prophylactic Immunotherapy given SPORTS PHYSICAL with JAYME HAMMOND-C 10/15/2014 Last Documented On 5 4:56PM ; [facility] Acute pharyngitis SICK VISIT with ZAFAR CUBA [facility] 08/18/2014 Last Documented On 5 3:30PM ; [facility] Acute upper respiratory infection SICK V ISIT with ZAFAR QUEZADA [facility] 08/18/2014 Last Documented On 5 3:30PM ; [facility] Normal puberty breast bud PROBLEM VISIT with GEORGI HAMMOND-C 02/16/2014 Last Documented On 4 4:22PM ; [facility] Group A streptococcus: B hem olytic pharyngitis SICK VISIT with JAYME HAMMOND-C 09/04/2013 Last Documented On 4 2:23PM ; [facility] Acute pharyngitis SICK VISIT with JAYME HAMMOND-C 06/02/2013 Last Documented On 3 2:25PM ; [facility] Viral infection SICK VISIT with JAYME LOZOYA PA-C 06/02/2013 Last Documented On 3 2:25PM ; [facility] Acute pharyngitis SICK VISIT with KATYA ROBB MD 02/09/2013 Last Documented On 3 4:04PM ; [facility] Cerumen impaction PROBLEM VISIT with KATYA CUENCA MD 12/22/2012 Last Documented On 3 10:12PM ; [facility] Glossodynia PROBLEM VISIT with KATYA ALLEN MD 12/22/2012 Last Documented On 3 10:12PM ; [facility] WORRIED WELL PROBLEM VISIT with KATYA ALLEN MD 12/22/2012 Last Documented On 3 10:12PM ; [facility] Otitis externa SICK VISIT with JAYME LOZOYA PA-C 01/03/2012 Last Documented On 2 1:44PM ; [facility] Sore throat SICK VISIT with JAYME LOZOYA PA-C 10/17/2011 Last Documented On 2 3:02PM ; [facility] Upper respiratory tract diso rders (viral) vs allergic rhinitis SICK VISIT with JAYME LOZOYA PA-C 10/17/2011 Last Documented On 2 3:02PM ; [facility] Open wound NEW PATIENT VISIT with KATYA LIVINGSTON MD 09/24/2011 Last Documented On 2 11:46PM ; [facility] Instructions Includes: Instructions for all patient encounters Instructions to patient Instructions for patient : B reast Self Exam discussed and technique reviewed Last Documented On 2 1:57PM ; [facility] Instructed to call if excess angie bleeding or abdominal/pelvic pain Last Documented On 2 1:57PM ; [facility] Recommend diet and exercise at least 30 min three times per week Last Documented On 2 1:57PM ; [facility] Instructions for patient Last Documented On 8 4:15PM ; [facility] Instructions for patient Last Documented On 6 10:44AM ; [facility] No Special Instructions or D evices Last Documented On 5 4:36PM ; [facility] Instructions for patient Last Documented On 5 3:16PM ; [facility] Watch for signs/symptoms of infection Last Documented On 2 11:40PM ; [facility] Education and Decision Aids were provided during visit for: Patient education RE: ramo soria signals associated with hormonal contraceptive use including abdominal, chest, or leg pain, headaches or visual disturbances Last Documented On 2 1:57PM ; [facility] Patient Education: Daily david cium and vitamin D Last Documented On 2 1:57PM ; [facility] control consent review ed and signed Last Documented On 2 1:57PM ; [facility] Anticipatory guidance: limit computer and video time Last Documented On 8 4:45PM ; [facility] Discussed use of seat belts Last Documented On 8 4:45PM ; [facility] Discussed use of smoke detec tors Last Documented On 8 4:45PM ; [facility] Discussed 'child-proofing' t he house advised to remove guns from home or keep unloaded and locked away Last Documented On 8 4:45PM ; [facility] Discussed avoiding sun expos ure Last Documented On 8 4:45PM ; [facility] Discussed bicycle safety Last Documented On 8 4:45PM ; [facility] Discussed sports safety Last Documented On 8 4:45PM ; [facility] Discussed nutritional needs teach healthy choices including fruits and vegetables Last Documented On 8 4:45PM ; [facility] Discussed activities supervi se activities with peers Last Documented On 8 4:45PM ; [facility] Discussed concerns about exe rcise : promote physical activity Last Documented On 8 4:45PM ; [facility] Discussed concerns about dis cipline reinforce limits, family rules, homework and chores Last Documented On 8 4:45PM ; [facility] Discussed concerns about set ting disciplinary limits and establish consequences Last Documented On 8 4:45PM ; [facility] Discussed concerns about tel evision : limit time spent watching Last Documented On 8 4:45PM ; [facility] Discussed concerns about sex ual activity Last Documented On 8 4:45PM ; [facility] Discussed concerns about uns afe sexual practices Last Documented On 8 4:45PM ; [facility] Discussed concerns about tob acco use director counseling bureau to avoid~ Last Documented On 8 4:45PM ; [facility] Discussed concerns about alc ohol use director counseling bureau to avoid Last Documented On 8 4:45PM ; [facility] Discussed concerns about ill icit drug use director counseling bureau to avoid Last Documented On 8 4:45PM ; [facility] Discussed concerns Recommend ed Gardasil series--mother wanted to wait Last Documented On 5 4:36PM ; [facility] Medical Equipment - Implanted Devices Includes: Current and historical Devices No Medical Equipment Recorded Medications Includes: Current and historical Medications Past Medications on file Condoms Miscellaneous 06/20/2022 - 07/02/2022 Provider: SONJA LOTT RN [facility] Diagnosis: Encounter for ot h general cnsl and advice on contraception as directed Last Documented On 3 4:25PM By SONJA ALVA ; [facility] metroNIDAZOLE 0.75% Vaginal Gel 05/20/2022 - 05/25/2022 Provider: SONJA WARD BC Diagnosis: Acute vaginitis as directed 1 LIDA PER VAGINA DAILY X 5 Last Documented On 2 10:07AM By SONJA ALVA ; [facility] Ventolin HFA 108 (90 Base)MCG/ACT Inhalation Aerosol, solution 09/22/2018 - 10/22/2018 Provider: JAYME LOZOYA PA-C Diagnosis: Shortness of manuel ath 2 puffs q 4-6 hrs PRN Last Documented On 9 4:04PM By JAYME LOZOYA PA-C ; [facility] Penicillin V Potassium 250 MG/5ML Solution, when reconstituted 08/18/2014 - 08/28/2014 Provider: ZAFAR QUEZADA PMHNP-BC MACHINIST/MACHINE BUILDER-BC Diagnosis: ACUTE PHARYNGITI S as directed 5ml BID x 10 days Last Documented On 5 3:26PM By [facility] ; [facility] Amoxicillin 250 MG OR CAPS 09/04/2013 - 09/14/2013 Provider: JAYME LOZOYA PA-C Diagnosis: STREP SORE THROA T Take 3 capsules once daily x 10 days Last Documented On 4 2:19PM By JAYME LOZOYA PA-C ; [facility] Amoxicillin 250 MG OR CAPS 02/09/2013 - 02/19/2013 Provider: KATYA DOOLEY MD Diagnosis: ACUTE PHARYNGITI S 3 ONCE A DAY X 10 DAYS Last Documented On 02/09/2013 3:52PM By Elicia CORTEZ ; [facility] Ciprodex 0.3-0.1% OT SUSP 01/03/2012 - 01/10/2012 Provider: JAYME LOZOYA PA-C Diagnosis: INFEC OTITIS EXT USMAN NOS 4 gtts in affected ear twice daily x 7 days Last Documented On 2 1:32PM By JAYME LOZOYA PA-C ; [facility] Singulair 5 MG OR CHEW 10/17/2011 - 11/16/2011 Provide r: JAYME LOZOYA PA-C Diagnosis: UPPER RESP DIS NEC/NOS Chew one tab daily in PM. Last Documented On 2 2:58PM By JAYME LOZOYA PA-C ; [facility] Silver sulfADIAZINE 1% EX CREA 09/24/2011 - 10/02/2011 Provider: KATYA DOOLEY MD Diagnosis: OPEN WOUND SITE NOS Last Documented On 2 11:42PM By KATYA DOOLEY MD ; [facility] Cephalexin 250 MG/5ML OR SUSR 09/20/2011 - 02/09/2013 Provider: Diagnosis: ONE TSP QID X 10 DAYS, PRESCRIBED TO ER Last Documented On 3 3:14PM By CAMILO CORTEZ ; [facility] Medications Administered Includes: Administered Medications in patient's chart No Administered Medications Recorded Results Includes: Results from 05/20/2023 through 05/20/2024 No Results Recorded For Specified Dates History of Present Illness History of Present Illness not supported for this document type No History of Present Illness Recorded Social History Description Last Updated control is practiced condoms 100% 05/17/2022 Last Documented On 2 2:48PM ; [facility] Education history 05/17/2022 Last Documented On 2 2:48PM ; [facility] Not a smoker 05/17/2022 Last Documented On 2 2:48PM ; [facility] Sexually active 05/17/2022 Last Documented On 2 2:48PM ; [facility] Single 05/17/2022 Last Documented On 2 2:48PM ; [facility] Sexually active with 1 partners in the l ast year 05/17/2022 Last Documented On 2 2:48PM ; [facility] Does not have anal sex 05/17/2022 Last Documented On 2 2:48PM ; [facility] Has not used injectable drugs 05/17/2022 Last Documented On 2 2:48PM ; [facility] Has sex with males only 05/17/2022 Last Documented On 2 2:48PM ; [facility] No consumption of alcohol 05/17/2022 Last Documented On 2 2:48PM ; [facility] Partner has not had a STD in the past ye ar 05/17/2022 Last Documented On 2 2:48PM ; [facility] Patient has not had sex unde r the influence of alcohol or drugs in the last year 05/17/2022 Last Documented On 2 2:48PM ; [facility] Sexual partner has not had o ther partners while in relationship with patient 05/17/2022 Last Documented On 2 2:48PM ; [facility] Sexual partner has not had sex with pros titutes 05/17/2022 Last Documented On 2 2:48PM ; [facility] Activities 09/24/2017 Last Documented On 8 4:46PM ; [facility] Amount of sleep 09/24/2017 Last Documented On 8 4:46PM ; [facility] The racial background was unknown ethnic minority 10/15/2014 Last Documented On 5 4:56PM ; [facility] No tobacco use 10/15/2014 Last Documented On 5 4:56PM ; [facility] Not using alcohol 10/15/2014 Last Documented On 5 4:56PM ; [facility] Not using drugs 10/15/2014 Last Documented On 5 4:56PM ; [facility] Smoking status : Never smoker 08/18/2014 Last Documented On 5 3:30PM ; [facility] No recent change in sleep 10/17/2011 Last Documented On 2 3:02PM ; [facility] No recent decrease in activity 2 Last Documented On 2 3:02PM ; [facility] Procedures and Surgical History Surgical History Last Updated Surgical / procedural history RT LABIAL HERNIA [id number] 09/24/2011 Last Documented On 2 11:46PM ; [facility] Medical History Includes: Medical History in patient's chart Description Last Updated LMP: 06/02/2022 06/20/2022 Last Documented On 3 4:20PM ; [facility] Primary Care Provider: NONE 05/17/2022 Last Documented On 2 2:48PM ; [facility] 0 05/17/2022 Last Documented On 2 2:48PM ; [facility] Condoms 05/17/2022 Last Documented On 2 2:48PM ; [facility] No previous STD 05/17/2022 Last Documented On 2 2:48PM ; [facility] Please list all surgeries: Labial Hernia 2004 05/17/2022 Last Documented On 2 2:48PM ; [facility] Not taking medication 09/24/2017 Last Documented On 8 4:46PM ; [facility] A PPD was not performed 10/15/2014 Last Documented On 5 4:56PM ; [facility] Blood pressure was not high 10/15/2014 Last Documented On 5 4:56PM ; [facility] No cardiac problems 10/15/2014 Last Documented On 5 4:56PM ; [facility] No hearing problems 10/15/2014 Last Documented On 5 4:56PM ; [facility] No heart murmur 10/15/2014 Last Documented On 5 4:56PM ; [facility] No previous hospitalizations 10/15/2014 Last Documented On 5 4:56PM ; [facility] No trauma to the head 10/15/2014 Last Documented On 5 4:56PM ; [facility] Family History Includes: Family History in patient's chart Description Last Updated Mother-hyperhomocysteinemia 05/17/2022 Last Documented On 2 2:48PM ; [facility] No diagnosis of family history of malign ant female breast neoplasm 05/17/2022 Last Documented On 2 2:48PM ; [facility] No diagnosis of family history of malign ant neoplasm of large intestine 05/17/2022 Last Documented On 2 2:48PM ; [facility] No diagnosis of family history of malign ant neoplasm of ovary 05/17/2022 Last Documented On 2 2:48PM ; [facility] Family history of Anemia 05/17/2022 Last Documented On 2 2:48PM ; [facility] Maternal history of Anemia 05/17/2022 Last Documented On 2 2:48PM ; [facility] Maternal history of gallbladder disease 05/17/2022 Last Documented On 2 2:48PM ; [facility] Paternal history of gallbladder disease 05/17/2022 Last Documented On 2 2:48PM ; [facility] Family history of acute myocardial infar ction MAT GF IN 40s (Smoker) 09/22/2018 Last Documented On 9 4:12PM ; [facility] Family history of anxiety disorder NOS M OTHER AND FATHER 09/22/2018 Last Documented On 9 4:12PM ; [facility] Family history of hypertension FATHER Last Documented On 9 4:12PM ; [facility] No family history of diabetes mellitus 0 10/15/2014 Last Documented On 5 4:56PM ; [facility] No family history of sudden early deaths 10/15/2014 Last Documented On 5 4:56PM ; [facility] Family history unchanged 08/18/2014 Last Documented On 5 3:30PM ; [facility] Review of Systems Review of Systems not [...] 1 10/15/2014 Right Arm Compl ete (Administered) [facility] Last Documented On 5 4:37PM ; [facility] Meningococcal ACYW-135 (Menactra) 1 03/03/2015 Right Arm Complete (Administered) [facility] Last Documented On 5 2:11PM ; [facility] Allergies Includes: Active, inactive, and resolved Allergies No Known Allergies Insurance Includes: Active Insurance Policies Plan Name Member ID Group # Subscriber Relationship Effect angie Dates 1 - [employer] [place] [facility] [facility] [id number] TERE MEJIA Self Clinical Notes Includes: Signed Clinical Notes starting from 06/22/2022 No Clinical Notes Recorded
--- OUTSIDE RECORDS SUMMARY | 2024-05-20 23:56 | XMS_ITS | Clinical Summary ---
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 Last Documented On 2 11:02AM ; [facility]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 Plan of Treatment No [...] On 3 4:25PM By SONJA ALVA ; [facility] metroNIDAZOLE 0.75% Vaginal Gel 05/20/2022 - 05/25/2022 Provider: SONJA VEGA Diagnosis: Acute vaginitis as directed 1 LIDA PER VAGINA DAILY X 5 Last Documented On 2 10:07AM By SONJA LOTT [facility] ; [facility] Ventolin HFA 108 (90 Base)MCG/ACT Inhalation Aerosol, solution 09/22/2018 - 10/22/2018 Provider: JAYME LOZOYA PA-C Diagnosis: Shortness of manuel ath 2 puffs q 4-6 hrs PRN Last Documented On 9 4:04PM By JAYME LOZOYA PA-C ; [facility] Penicillin V Potassium 250 MG/5ML Solution, when reconstituted 08/18/2014 - 08/28/2014 Provider: ZAFAR QUEZADA [facility] Diagnosis: ACUTE PHARYNGITI S as directed 5ml BID x 10 days Last Documented On 5 3:26PM By ZAFAR QUEZADA [facility] ; [facility] Amoxicillin 250 MG OR CAPS 09/04/2013 - 09/14/2013 Provider: JAYME LOZOYA PA-C Diagnosis: STREP SORE THROA T Take 3 capsules once daily x 10 days Last Documented On 4 2:19PM By JAYME LOZOYA PA-C ; [facility] Amoxicillin 250 MG OR CAPS 02/09/2013 - 02/19/2013 Provider: KATYA DOOLEY MD Diagnosis: ACUTE PHARYNGITI S 3 ONCE A DAY X 10 DAYS Last Documented On 02/09/2013 3:52PM By Elicia CORTEZ ; [facility] Ciprodex 0.3-0.1% OT SUSP 01/03/2012 - 01/10/2012 Provider: JAYME LOZOYA PA-C Diagnosis: INFEC OTITIS EXT USMAN NOS 4 gtts in affected ear twice daily x 7 days Last Documented On 2 1:32PM By JAYME LOZOYA PA-C ; [facility] Singulair 5 MG OR CHEW 10/17/2011 - 11/16/2011 Provide r: JAYME LOZOYA PA-C Diagnosis: UPPER RESP DIS NEC/NOS Chew one tab daily in PM. Last Documented On 2 2:58PM By JAYME LOZOYA PA-C ; [facility] Silver sulfADIAZINE 1% EX CREA 09/24/2011 - 10/02/2011 Provider: KATYA DOOLEY MD Diagnosis: OPEN WOUND SITE NOS Last Documented On 2 11:42PM By KATYA DOOLEY MD ; [facility] Medications Administered Includes: [...] Surgical / procedural history RT LABIAL HERNIA [id number] 09/24/2011 Last Documented On 2 10:59AM ; [facility] Medical History Includes: Medical History addressed during this encounter Description Last Updated LMP: 05/08/2022 06/20/2022 Last Documented On 2 10:59AM ; [facility] Primary Care Provider: NONE 05/17/2022 Last Documented On 2 10:59AM ; [facility] 0 05/17/2022 Last Documented On 2 10:59AM ; [facility] Condoms 05/17/2022 Last Documented On 2 10:59AM ; [facility] No previous STD 05/17/2022 Last Documented On 2 10:59AM ; [facility] Please list all surgeries: Labial Hernia 2004 05/17/2022 Last Documented On 2 10:59AM ; [facility] Not taking medication 09/24/2017 Last Documented On 2 10:59AM ; [facility] A PPD was not performed 10/15/2014 Last Documented On 2 10:59AM ; [facility] Blood pressure was not high 10/15/2014 Last Documented On 2 10:59AM ; [facility] No cardiac problems 10/15/2014 Last Documented On 2 10:59AM ; [facility] No hearing problems 10/15/2014 Last Documented On 2 10:59AM ; [facility] No heart murmur 10/15/2014 Last Documented On 2 10:59AM ; [facility] No previous hospitalizations 10/15/2014 Last Documented On 2 10:59AM ; [facility] No trauma to the head 10/15/2014 Last Documented On 2 10:59AM ; [facility] Family History Includes: Family History addressed during this encounter Description Last Updated Mother-hyperhomocysteinemia 05/17/2022 Last Documented On 2 10:59AM ; [facility] No diagnosis of family history of malign ant female breast neoplasm 05/17/2022 Last Documented On 2 10:59AM ; [facility] No diagnosis of family history of malign ant neoplasm of large intestine 05/17/2022 Last Documented On 2 10:59AM ; [facility] No diagnosis of family history of malign ant neoplasm of ovary 05/17/2022 Last Documented On 2 10:59AM ; [facility] Family history of Anemia 05/17/2022 Last Documented On 2 10:59AM ; [facility] Maternal history of Anemia 05/17/2022 Last Documented On 2 10:59AM ; [facility] Maternal history of gallbladder disease 05/17/2022 Last Documented On 2 10:59AM ; [facility] Paternal history of gallbladder disease 05/17/2022 Last Documented On 2 10:59AM ; [facility] Family history of acute myocardial infar ction MAT GF IN 40s (Smoker) 09/22/2018 Last Documented On 2 10:59AM ; [facility] Family history of anxiety disorder NOS M OTHER AND FATHER 09/22/2018 Last Documented On 2 10:59AM ; [facility] Family history of hypertension FATHER Last Documented On 2 10:59AM ; [facility] No family history of diabetes mellitus 0 10/15/2014 Last Documented On 2 10:59AM ; [facility] No family history of sudden early deaths 10/15/2014 Last Documented On 2 10:59AM ; [facility] Family history unchanged 08/18/2014 Last Documented On 2 10:59AM ; [facility] Review of Systems Includes: Review [...] Dates 1 - [employer] [place] [id number] TERE MEJIA Self Clinical Notes Includes: Clinical Notes from this encounter No Clinical Notes Recorded
--- OUTSIDE RECORDS SUMMARY | 2024-05-20 23:56 | XMS_ITS | Clinical Summary ---
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 Last Documented On 2 11:02AM ; [facility]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 Plan of Treatment No Plan of Treatment Recorded Assessments Includes: Assessments from this encounter Findings - Vaginitis - Last Documented On 05/20/2022 9:54AM ; [facility] Medical Equipment - Implanted Devices Includes: Current Devices No Medical Equipment Recorded Medications Includes: Medications discussed during this encounter and other current Medications New / Renewed during this visit SONJA VEGA on 05/20/2022 metroNIDAZOLE 0.75% Vaginal Gel Provider: SONJA VEGA 5 day supply: 70 gram, 0 refills Diagnosis: Acute vaginitis as directed 1 LIDA PER VAGINA DAILY X 5 Pharmacy : [facility] [place] - [address] [place] [address], [id number] - Last Documented On 2 10:07AM By [facility] Past Medications on file Condoms Miscellaneous 06/20/2022 - 07/02/2022 Provider: SONJA LOTT RN [facility] Diagnosis: Encounter for ot h general cnsl and advice on contraception as directed Last Documented On 3 4:25PM By [facility] ; [facility] Ventolin HFA 108 (90 Base)MCG/ACT Inhalation Aerosol, solution 09/22/2018 - 10/22/2018 Provider: JAYME LOZOYA PA-C Diagnosis: Shortness of manuel ath 2 puffs q 4-6 hrs PRN Last Documented On 9 4:04PM By JAYME LOZOYA PA-C ; [facility] Penicillin V Potassium 250 MG/5ML Solution, when reconstituted 08/18/2014 - 08/28/2014 Provider: ZAFAR QUEZADA [facility] Diagnosis: ACUTE PHARYNGITI S as directed 5ml BID x 10 days Last Documented On 5 3:26PM By ZAFAR QUEZADA [facility] ; [facility] Amoxicillin 250 MG OR CAPS 09/04/2013 - 09/14/2013 Provider: JAYME LOZOYA PA-C Diagnosis: STREP SORE THROA T Take 3 capsules once daily x 10 days Last Documented On 4 2:19PM By JAYME LOZOYA PA-C ; [facility] Amoxicillin 250 MG OR CAPS 02/09/2013 - 02/19/2013 Provider: KATYA DOOLEY MD Diagnosis: ACUTE PHARYNGITI S 3 ONCE A DAY X 10 DAYS Last Documented On 02/09/2013 3:52PM By Elicia CORTEZ ; [facility] Ciprodex 0.3-0.1% OT SUSP 01/03/2012 - 01/10/2012 Provider: JAYME LOZOYA PA-C Diagnosis: INFEC OTITIS EXT USMAN NOS 4 gtts in affected ear twice daily x 7 days Last Documented On 2 1:32PM By JAYME LOZOYA PA-C ; [facility] Singulair 5 MG OR CHEW 10/17/2011 - 11/16/2011 Provide r: JAYME LOZOYA PA-C Diagnosis: UPPER RESP DIS NEC/NOS Chew one tab daily in PM. Last Documented On 2 2:58PM By JAYME LOZOYA PA-C ; [facility] Silver sulfADIAZINE 1% EX CREA 09/24/2011 - 10/02/2011 Provider: KATYA DOOLEY MD Diagnosis: OPEN WOUND SITE NOS Last Documented On 2 11:42PM By KATYA DOOLEY MD ; [facility] Medications Administered Includes: Administered [...] Surgical / procedural history RT LABIAL HERNIA [id number] 09/24/2011 Last Documented On 2 9:53AM ; [facility] Medical History Includes: Medical History addressed during this encounter Description Last Updated LMP: 05/08/2022 06/20/2022 Last Documented On 2 9:53AM ; [facility] Primary Care Provider: NONE 05/17/2022 Last Documented On 2 9:53AM ; [facility] 0 05/17/2022 Last Documented On 2 9:53AM ; [facility] Condoms 05/17/2022 Last Documented On 2 9:53AM ; [facility] No previous STD 05/17/2022 Last Documented On 2 9:53AM ; [facility] Please list all surgeries: Labial Hernia 2004 05/17/2022 Last Documented On 2 9:53AM ; [facility] Not taking medication 09/24/2017 Last Documented On 2 9:53AM ; [facility] A PPD was not performed 10/15/2014 Last Documented On 2 9:53AM ; [facility] Blood pressure was not high 10/15/2014 Last Documented On 2 9:53AM ; [facility] No cardiac problems 10/15/2014 Last Documented On 2 9:53AM ; [facility] No hearing problems 10/15/2014 Last Documented On 2 9:53AM ; [facility] No heart murmur 10/15/2014 Last Documented On 2 9:53AM ; [facility] No previous hospitalizations 10/15/2014 Last Documented On 2 9:53AM ; [facility] No trauma to the head 10/15/2014 Last Documented On 2 9:53AM ; [facility] Family History Includes: Family History addressed during this encounter Description Last Updated Mother-hyperhomocysteinemia 05/17/2022 Last Documented On 2 9:53AM ; [facility] No diagnosis of family history of malign ant female breast neoplasm 05/17/2022 Last Documented On 2 9:53AM ; [facility] No diagnosis of family history of malign ant neoplasm of large intestine 05/17/2022 Last Documented On 2 9:53AM ; [facility] No diagnosis of family history of malign ant neoplasm of ovary 05/17/2022 Last Documented On 2 9:53AM ; [facility] Family history of Anemia 05/17/2022 Last Documented On 2 9:53AM ; [facility] Maternal history of Anemia 05/17/2022 Last Documented On 2 9:53AM ; [facility] Maternal history of gallbladder disease 05/17/2022 Last Documented On 2 9:53AM ; [facility] Paternal history of gallbladder disease 05/17/2022 Last Documented On 2 9:53AM ; [facility] Family history of acute myocardial infar ction MAT GF IN 40s (Smoker) 09/22/2018 Last Documented On 2 9:53AM ; [facility] Family history of anxiety disorder NOS M OTHER AND FATHER 09/22/2018 Last Documented On 2 9:53AM ; [facility] Family history of hypertension FATHER Last Documented On 2 9:53AM ; [facility] No family history of diabetes mellitus 0 10/15/2014 Last Documented On 2 9:53AM ; [facility] No family history of sudden early deaths 10/15/2014 Last Documented On 2 9:53AM ; [facility] Family history unchanged 08/18/2014 Last Documented On 2 9:53AM ; [facility] Review of Systems Includes: [...] Time Diagnosis CHART UPDATE SONJA LOTT RN [facility] 05/20/2022 9:52AM 11:59PM Vaginitis Insurance Includes: Active Insurance Policies Plan Name Member ID Group # Subscriber Relationship Effect angie Dates 1 - [employer] [place] [employer] [id number] TERE MEJIA Self Clinical Notes Includes: Clinical Notes from this encounter No Clinical Notes Recorded
--- OUTSIDE RECORDS SUMMARY | 2024-05-20 23:56 | XMS_ITS ---
Care Plan - [facility] Created on: May 20, 2024 TERE MEJIA : 2005 Sex: Female Author Organization [facility] Address [address] [place] [address] Phone Care Team Providers Care Relay Repairer Name Role Phone FREDA BAIG, ORIANA Dwyer Unavailable [phone]
--- OUTSIDE RECORDS SUMMARY | 2024-05-20 23:57 | XMS_ITS | Clinical Summary ---
Author Organization [facility] Address [address] [place] [address] Phone Care Team Providers Care Meteorologist In Charge Name Role Phone FREDA BAIG, ORIANA Dwyer Unavailable [phone] Reason for Visit and Chief Complaint gynecologic annual exam, visit for: screening for STD - The Chief Complaint is: WWE. Pt would like to discuss control, either pill or patch. 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 - Last Documented On 05/17/2022 2:48PM ; [facility] RTC 1 YEAR - Last Documented On 05/17/2022 2:48PM ; [facility] Instructions to patient Instructions for patient : B reast Self Exam discussed and technique reviewed Last Documented On 2 1:57PM ; [facility] Instructed to call if excess angie bleeding or abdominal/pelvic pain Last Documented On 2 1:57PM ; [facility] Recommend diet and exercise at least 30 min three times per week Last Documented On 2 1:57PM ; [facility] Education and Decision Aids were provided during visit for: Patient education RE: boni ng signals associated with hormonal contraceptive use including abdominal, chest, or leg pain, headaches or visual disturbances Last Documented On 2 1:57PM ; [facility] Patient Education: Daily david cium and vitamin D Last Documented On 2 1:57PM ; [facility] control consent review ed and signed Last Documented On 2 1:57PM ; [facility] Assessments Includes: Assessments from this encounter Findings - NORMAL FEMALE EXAM - Last Documented On 05/17/2022 2:48PM ; [facility] - Family history of disorders of blood and blood-forming organs - Last Documented On 05/17/2022 2:48PM ; [facility] Instructions Includes: Instructions from this encounter Instructions to patient Instructions for patient : B reast Self Exam discussed and technique reviewed Last Documented On 2 1:57PM ; [facility] Instructed to call if excess angie bleeding or abdominal/pelvic pain Last Documented On 2 1:57PM ; [facility] Recommend diet and exercise at least 30 min three times per week Last Documented On 2 1:57PM ; [facility] Education and Decision Aids were provided during visit for: Patient education RE: bonileo g signals associated with hormonal contraceptive use including abdominal, chest, or leg pain, headaches or visual disturbances Last Documented On 2 1:57PM ; [facility] Patient Education: Daily david cium and vitamin D Last Documented On 2 1:57PM ; [facility] control consent review ed and signed Last Documented On 2 1:57PM ; [facility] Medical Equipment - Implanted Devices Includes: Current Devices No Medical Equipment Recorded Medications Includes: Medications discussed during this encounter and other current Medications Past Medications on file Condoms Miscellaneous 06/20/2022 - 07/02/2022 Provider: SONJA LOTT RN [facility] Diagnosis: Encounter for ot h general cnsl and advice on contraception as directed Last Documented On 3 4:25PM By SONJA LOTT [facility] ; [facility] metroNIDAZOLE 0.75% Vaginal Gel 05/20/2022 - 05/25/2022 Provider: SONJA LOTT RN [facility] Diagnosis: Acute vaginitis as directed 1 LIDA PER VAGINA DAILY X 5 Last Documented On 2 10:07AM By SONJA LOTT [facility] ; [facility] Ventolin HFA 108 (90 Base)MCG/ACT Inhalation Aerosol, solution 09/22/2018 - 10/22/2018 Provider: JAYME LOZOYA PA-C Diagnosis: Shortness of manuel ath 2 puffs q 4-6 hrs PRN Last Documented On 9 4:04PM By JAYME LOZOYA PA-C ; [facility] Penicillin V Potassium 250 MG/5ML Solution, when reconstituted 08/18/2014 - 08/28/2014 Provider: ZAFAR QUEZADA [facility] Diagnosis: ACUTE PHARYNGITI S as directed 5ml BID x 10 days Last Documented On 5 3:26PM By ZAFAR QUEZADA [facility] ; [facility] Amoxicillin 250 MG OR CAPS 09/04/2013 - 09/14/2013 Provider: JAYME LOZOYA PA-C Diagnosis: STREP SORE THROA T Take 3 capsules once daily x 10 days Last Documented On 4 2:19PM By JAYME LOZOYA PA-C ; [facility] Amoxicillin 250 MG OR CAPS 02/09/2013 - 02/19/2013 Provider: KATYA DOOLEY MD Diagnosis: ACUTE PHARYNGITI S 3 ONCE A DAY X 10 DAYS Last Documented On 02/09/2013 3:52PM By Elicia CORTEZ ; [facility] Ciprodex 0.3-0.1% OT SUSP 01/03/2012 - 01/10/2012 Provider: JAYME LOZOYA PA-C Diagnosis: INFEC OTITIS EXT USMAN NOS 4 gtts in affected ear twice daily x 7 days Last Documented On 2 1:32PM By JAYME LOZOYA PA-C ; [facility] Singulair 5 MG OR CHEW 10/17/2011 - 11/16/2011 Provide r: JAYME LOZOYA PA-C Diagnosis: UPPER RESP DIS NEC/NOS Chew one tab daily in PM. Last Documented On 2 2:58PM By JAYME LOZOYA PA-C ; [facility] Silver sulfADIAZINE 1% EX CREA 09/24/2011 - 10/02/2011 Provider: KATYA DOOLEY MD Diagnosis: OPEN WOUND SITE NOS Last Documented On 2 11:42PM By KATYA DOOLEY MD ; [facility] Medications Administered Includes: Administered Medications from this encounter No Administered Medications Recorded Vital Signs Includes: Vital Signs from this encounter Vital Name 05/17/2022 01:18P Blood Pressure Sitting L 134/78 BP Cuff Size Regular Temp-Temporal 98.3 Height (in) 68.5 Weight (lb) 139 Body Mass Index 20.8 BMI Percentile (percentile) 42.1 Body Surface Area 1.8 Last Documented: On 05/17/2022 1:26PM ; [facility] Results Includes: Results discussed during [...] 05/17/2022 Last Documented On 2 2:48PM ; [facility] Education history 05/17/2022 Last Documented On 2 2:48PM ; [facility] Not a smoker 05/17/2022 Last Documented On 2 2:48PM ; [facility] Sexually active 05/17/2022 Last Documented On 2 2:48PM ; [facility] Single 05/17/2022 Last Documented On 2 2:48PM ; [facility] Sexually active denies any unprotected 1 00% condoms 05/17/2022 Last Documented On 2 2:48PM ; [facility] Sexually active with 1 partners in the l ast year 05/17/2022 Last Documented On 2 2:48PM ; [facility] Does not have anal sex 05/17/2022 Last Documented On 2 2:48PM ; [facility] Has not used injectable drugs 05/17/2022 Last Documented On 2 2:48PM ; [facility] Has sex with males only 05/17/2022 Last Documented On 2 2:48PM ; [facility] No consumption of alcohol 05/17/2022 Last Documented On 2 2:48PM ; [facility] Partner has not had a STD in the past ye ar 05/17/2022 Last Documented On 2 2:48PM ; [facility] Patient has not had sex unde r the influence of alcohol or drugs in the last year 05/17/2022 Last Documented On 2 2:48PM ; [facility] Sexual partner has not had o ther partners while in relationship with patient 05/17/2022 Last Documented On 2 2:48PM ; [facility] Sexual partner has not had sex with pros titutes 05/17/2022 Last Documented On 2 2:48PM ; [facility] Activities 09/24/2017 Last Documented On 2 1:17PM ; [facility] No tobacco use 10/15/2014 Last Documented On 2 1:17PM ; [facility] Not using drugs 10/15/2014 Last Documented On 2 1:17PM ; [facility] Smoking Status Unknown Procedures and Surgical History Includes: Procedures from this encounter Procedures Code Diagnosis Performing Provider Service L ocation Service Date education and instructions Last Documented On 2 1:57PM ; [facility] explanation of plan Last Documented On 2 1:57PM ; [facility] evaluation of contraceptive history perf ormed Last Documented On 2 1:57PM ; [facility] education about contraception performed Last Documented On 2 1:57PM ; [facility] reporting of contraception complications performed Last Documented On 2 1:57PM ; [facility] Discussed Contraception Pt i nformed she is not eligible for any combined contraception until thromboembolitic panel results are reviewed d/t CV risk factors. Discussed combined and progestin only contraception, pt would like OCP or patch. Pt to be contacted with results and will cont. OTC analgesics for dysmenorrhea Last Documented On 2 2:45PM ; [facility] Urged Exercise and Diet , exercise at le ast 30 min three times per week Last Documented On 2 1:57PM ; [facility] test was negative Last Documented On 2 1:57PM ; [facility] Surgical History Last Updated Surgical / procedural history RT LABIAL HERNIA [id number] 09/24/2011 Last Documented On 2 1:17PM ; [facility] Medical History Includes: Medical History addressed during this encounter Description Last Updated Primary Care Provider: NONE 05/17/2022 Last Documented On 2 2:48PM ; [facility] 0 05/17/2022 Last Documented On 2 2:48PM ; [facility] LMP: 05/08/2022 05/17/2022 Last Documented On 2 2:48PM ; [facility] Condoms 05/17/2022 Last Documented On 2 2:48PM ; [facility] No previous STD 05/17/2022 Last Documented On 2 2:48PM ; [facility] Please list all surgeries: Labial Hernia 2004 05/17/2022 Last Documented On 2 2:48PM ; [facility] Not taking medication 09/24/2017 Last Documented On 2 1:17PM ; [facility] No history of asthma 10/15/2014 Last Documented On 2 1:17PM ; [facility] No history of concussion 10/15/2014 Last Documented On 2 1:17PM ; [facility] No history of diabetes mellitus 10/16/19 Last Documented On 2 1:17PM ; [facility] No history of hematologic disorder 10/15 Last Documented On 2 1:17PM ; [facility] Family History Includes: Family History addressed during this encounter Description Last Updated Mother-hyperhomocysteinemia 05/17/2022 Last Documented On 2 2:48PM ; [facility] No diagnosis of family history of malign ant female breast neoplasm 05/17/2022 Last Documented On 2 2:48PM ; [facility] No diagnosis of family history of malign ant neoplasm of large intestine 05/17/2022 Last Documented On 2 2:48PM ; [facility] No diagnosis of family history of malign ant neoplasm of ovary 05/17/2022 Last Documented On 2 2:48PM ; [facility] Family history of Anemia 05/17/2022 Last Documented On 2 2:48PM ; [facility] Maternal history of Anemia 05/17/2022 Last Documented On 2 2:48PM ; [facility] Maternal history of gallbladder disease 05/17/2022 Last Documented On 2 2:48PM ; [facility] Paternal history of gallbladder disease 05/17/2022 Last Documented On 2 2:48PM ; [facility] Family history of acute myocardial infar ction MAT GF IN 40s (Smoker) 09/22/2018 Last Documented On 2 1:17PM ; [facility] Family history of anxiety disorder NOS M OTHER AND FATHER 09/22/2018 Last Documented On 2 1:17PM ; [facility] Family history of hypertension FATHER Last Documented On 2 1:17PM ; [facility] No family history of diabetes mellitus 0 10/15/2014 Last Documented On 2 1:17PM ; [facility] No family history of sudden early deaths 10/15/2014 Last Documented On 2 1:17PM ; [facility] Family history unchanged 08/18/2014 Last Documented On 2 1:17PM ; [facility] Review of Systems Includes: Review [...] - NEW PATIENT SONJA LOTT RN [facility] 05/17/20 22 1:15PM 2:20PM Normal Female Exam Insurance Includes: Active Insurance Policies Plan Name Member ID Group # Subscriber Relationship Effect angie Dates 1 - [employer] [place] [employer] [facility] [id number] TERE MEJIA Self Clinical Notes Includes: Clinical Notes from this encounter No Clinical Notes Recorded
--- OUTSIDE RECORDS SUMMARY | 2024-05-20 23:57 | XMS_ITS | Clinical Summary ---
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
== END 2024-05-16 17:07 | disposition home or self-care (01) ==
PROVIDERS: Emergency Provider Nurse Practitioner Family
DX: J06.9 Acute upper respiratory infection, unspecified (principal)
CPT/HCPCS: 99213; G0463